=== PATIENT | male | born 1975 | race Asian ===

== ENCOUNTER 2016-07-07 21:50 | Inpatient (IN) | payer MEDICARE, OTHER ==
[~2016-07-07] VITALS: Ht 177.8 cm; Wt 74.0 kg
[~2016-07-07 21:50] MED LIST: ALLO100T PO; AMLO5TAB4 PO; BICS PO; CHOL50009 PO; CNC30T PO; COLC0.6T6 PO; DOCU-144 PO; EPOE20006 SC; FOSR500 PO; FURO40TA PO; METO-448 PO; MYCO250C3 PO; PRED2.5T3 PO; SEVE800T7 PO; TRAM-40 PO; TRAZ50TA18 PO
[2016-07-07] MEDS ORDERED: PIPER-TAZO 3.375 GM IV (PMX) 100 ML IVPB STA (22:38)
[2016-07-07] MEDS ORDERED: VANCOMYCIN 1 GM (PMX) 250 ML IVPB STA (22:38)
[2016-07-07] MEDS ORDERED: ACETAMINOPHEN 325 MG TAB PO STA (22:38)
[2016-07-07] MEDS ORDERED: SOD CHLORIDE 0.9% 500 ML IV ONE (23:00)
[2016-07-07] MEDS ORDERED: LISI10TA2 PO (23:01)
[2016-07-07] MEDS ORDERED: ALLO100T PO (23:02)
[2016-07-07] MEDS ORDERED: METO-429 PO (23:03)
[2016-07-07] MEDS ORDERED: MECL-77 PO (23:03)
[2016-07-07] MEDS ORDERED: CALC667C PO (23:04)
[2016-07-07] MEDS ORDERED: PRED20TA PO (23:04)
[2016-07-07] MEDS ORDERED: ONDA4TAB95 PO (23:06)
[2016-07-07] MEDS ORDERED: CALC600T11 PO (23:06)
[2016-07-07] MEDS ORDERED: ASPI-664 PO (23:07)
[2016-07-07] MEDS ORDERED: PANT20TA3 PO (23:07)
[2016-07-07] MEDS ORDERED: TIZA4TAB PO (23:08)
[2016-07-07] MEDS ORDERED: TRAZ50TA18 PO (23:10)
[2016-07-07] MEDS ORDERED: EPO10ESRD SC (23:11)
[2016-07-07] MEDS ORDERED: HYDR-906 PO (23:12)
[2016-07-07] MEDS ORDERED: CYCL5TAB PO (23:13)
--- NOTE | 2016-07-07 23:17 | RADRPT ---
PROCEDURE: XR Chest. CLINICAL INDICATION: Possible sepsis. TECHNIQUE: AP view of the chest was obtained. COMPARISON: 04/21/2014 FINDINGS: The cardiomediastinal silhouette is within normal limits. There is elevation of the right hemidiaphr agm with interval development of air space disease in the right lower lobe overlying the hemidiaphra gm. No signs of pleural fluid or pneumothorax are seen. The osseous structures and soft tissues are unremarkable. IMPRESSION: 1. Redemonstration of elevation of the right hemidiaphragm with interval development of infiltrates involving the right lower lobe, concerning for possible pneumonia. RPTAT: HGAS .Benny Grimm MD, MD Date Time Electronically viewed and signed by .Benny Grimm MD, on 07/07/2016 23:17 .S/
[2016-07-07 23:23] LABS: INR 1.01; PROTIME 13.3 Sec (12.2-14.2)
[2016-07-07 23:24] LABS: ALBUMIN 4.3 g/dl (3.3-4.9); PARTIAL THROMBOPLASTIN TIME 34.8 Sec (25.0-35.0)
[2016-07-07 23:25] LABS: POTASSIUM 3.9 mmol/L (3.5-5.1)
[2016-07-07 23:27] LABS: BILIRUBIN,INDIRECT 0.3 mg/dl (0-1.1); BILIRUBIN,TOTAL 0.3 mg/dl (0.2-1.3)
[2016-07-07 23:28] LABS: ALBUMIN/GLOBULIN RATIO 0.86; CALCIUM 7.8 mg/dl (8.4-10.2); TOTAL PROTEIN 9.3 g/dl (6.1-8.1)
[2016-07-07 23:30] LABS: HEMATOCRIT 32.4 % (42.0-52.0); HEMOGLOBIN 9.6 g/dl (14.0-18.0); MEAN CORPUSCULAR HGB CONC 29.7 g/dl (32.0-37.0); MEAN CORPUSCULAR VOLUME 57.3 fl (82.0-101.0); RED BLOOD COUNT 5.65 10^6/ul (4.70-6.10); RED CELL DISTRIBUTION WIDTH 24.8 % (11.5-14.5); UNCORRECTED WBC 13.7 10^3/ul (4.8-10.8); WHITE BLOOD COUNT 13.7 10^3/ul (4.8-10.8)
[2016-07-07 23:34] LABS: CONDITION 1; LH ANALYZER COMMENTS 1; PLATELET COUNT 102 10^3/UL (140-440); SUSPECT 1
[2016-07-07 23:38] LABS: CREATININE 20.14 mg/dl (0.61-1.24); TROPONIN-I 0.044 ng/ml (0.00-0.12)
[2016-07-08 00:20] LABS: LYMPHOCYTES # 3.3 10^3/ul (0.8-2.9); MONOCYTE # 1.1 10^3/ul (0.3-0.9); NEUTROPHIL # 8.8 10^3/ul (1.6-7.5)
[2016-07-08 00:21] LABS: OVALOCYTES 1+; TEAR DROP CELLS 1+
--- NOTE | 2016-07-08 00:27 | ERA ---
ER Documentation Chief Complaint Date/Time DATE: 07/08/16 TIME: 00:25 Chief Complaint FEVER SINCE YESTERDAY, LOW BP, WEAKNESS AND DIZINESS HPI This is a 41-year-old male has fever since yesterday with low blood pressure. Patient is a peritoneal dialysis patient. Denies any nausea vomiting. He denies any other current complaints. Fevers been on and off. No other current issues. ROS All systems reviewed and are negative except as per history of present illness. Medications Home Meds Reported Medications Cyclobenzaprine Hcl* (Cyclobenzaprine Hcl*) 5 Mg Tablet, 5 MG PO Q8H, #60 TAB 07/07/16 Hydrocodone/Acetaminophen ([place] 5-325 Tablet) 1 Each Tablet, 1 EACH PO Q6, TAB 07/07/16 Epoetin Gunner (Epogen) 10,000 Units/Ml Soln, 40010 UNITS SC Q7DAYS, VIAL 07/07/16 Trazodone Hcl* (Desyrel*) 50 Mg Tab, 50 MG PO QHS, #30 TAB 07/07/16 Tizanidine Hcl* (Tizanidine Hcl*) 4 Mg Tablet, 4 MG PO BID Y for SPASTICITY, TAB 07/07/16 Pantoprazole* (Pantoprazole*) 20 Mg Tablet.dr, 20 MG PO BID, TAB 07/07/16 Aspirin* (Aspirin* EC) 81 Mg Tablet.dr, 81 MG PO DAILY, TAB 07/07/16 Ondansetron Hcl* (Ondansetron Hcl*) 4 Mg Tablet, 4 MG PO Q8 Y for PRN, TAB 07/07/16 Calcium Carbonate* (Calcium Carbonate*) 600 MG Ca Tab, 3000 MG PO QID, TAB 07/07/16 Calcium Acetate* (Calcium Acetate*) 667 Mg Capsule, 2001 MG PO WITH MEALS, #90 CAP 07/07/16 Prednisone* (Prednisone*) 20 Mg Tab, 20 MG PO DAILY, TAB 07/07/16 Metoprolol Tartrate* (Lopressor*) 50 Mg Tab, 50 MG PO BID, #60 TAB 07/07/16 Meclizine Hcl* (Meclizine Hcl*) 25 Mg Tablet, 25 MG PO TID, TAB 07/07/16 Allopurinol* (Allopurinol*) 100 Mg Tablet, 100 MG PO DAILY, TAB 07/07/16 Lisinopril* (Lisinopril*) 10 Mg Tablet, 10 MG PO DAILY, #30 TAB 07/07/16 Sevelamer Carbonate* (Renvela*) 800 Mg Tablet, 2400 MG PO TID, TAB 04/23/14 Cholecalciferol* (Vitamin D*) 5,000 Unit Tablet, 53681 UNIT PO once a week, TAB 04/21/14 Trazodone Hcl* (Trazodone Hcl*) 50 Mg Tablet, 50 MG PO HS, TAB 04/21/14 Tramadol Hcl* (Ultram*) 50 Mg Tablet, 50 MG PO Q8 Y for PAIN, TAB 04/21/14 Amlodipine Besylate* (Norvasc*) 5 Mg Tablet, 5 MG PO BID, TAB 04/21/14 Discontinued Reported Medications Citric Acid/Sodium Citrate* (Bicitra* (PEDIATRIC)) 1 Meq/Ml Soln, 30 ML PO BID, POSYG 04/23/14 Docusate Sodium* (Colace*) 100 Mg Capsule, 100 MG PO BID, CAP 04/21/14 Epoetin Gunner* (Epogen*) 20,000 U/Ml Vial, 37339 UNIT SC once a week, VIAL 04/21/14 Lanthanum Carbonate* (Fosrenol*) 500 Mg Tab.chew, 2 GM PO TID, TAB.CHEW WITH MEALS 04/21/14 Cinacalcet* (Sensipar*) 30 Mg Tab, 30 MG PO DAILY, TAB 04/21/14 Furosemide* (Lasix*) 40 Mg Tablet, 40 MG PO BID, TAB 04/21/14 Metoprolol Tartrate* (Lopressor*) 25 Mg Tab, 25 MG PO DAILY, TAB 04/21/14 Allopurinol* (Allopurinol*) 100 Mg Tablet, 100 MG PO DAILY, TAB 04/21/14 Colchicine* (Colcrys*) 0.6 Mg Tablet, 0.6 MG PO Q12 Y for PAIN, TAB 04/21/14 Prednisone* (Prednisone*) 2.5 Mg Tablet, 2.5 MG PO DAILY, TAB 04/21/14 Mycophenolate Mofetil* (Cellcept*) 250 Mg Capsule, 250 MG PO DAILY, CAP 04/21/14 Allergies Allergies: Coded Allergies: No Known Drug Allergies (Verified Allergy, Mild, 07/07/16) PMhx/Soc History of Surgery: Yes (kidney transplant,partial thyroidectomy) Anesthesia Reaction: No Hx Neurological Disorder: No Hx Respiratory Disorders: No Hx Cardiac Disorders: Yes (chronic hypotension) Hx Psychiatric Problems: No Hx Miscellaneous Medical Probl: Yes (kidney failure,on peritoneal dialysis) Hx Alcohol Use: No Hx Substance Use: Yes (HX drug use) Hx Tobacco Use: Yes Smoking Status: Former smoker Physical Exam Vitals Vital Signs Date Time Temp Pulse Resp B/P Pulse Ox O2 Delivery O2 Flow Rate FiO2 07/08/16 00:18 102.7 07/08/16 00:01 120 25 100/66 99 Room Air 07/07/16 22:45 102 23 102/78 96 Room Air 07/07/16 21:54 101.2 118 20 88/58 100 Physical Exam Const: [] Head: Atraumatic Eyes: Normal Conjunctiva ENT: Normal External Ears, Nose and Mouth. Neck: Full range of motion..~ No meningismus. Resp: Clear to auscultation bilaterally Cardio: Regular rate and rhythm, no murmurs Abd: Soft, non tender, non distended. Normal bowel sounds Skin: No petechiae or rashes Back: No midline or flank tenderness Ext: No cyanosis, or edema Neur: Awake and alert Psych: Normal Mood and Affect Result Diagram: 07/07/16 2303 07/07/16 2303 Results 24 hrs Laboratory Tests Test 07/07/16 23:03 Activated Partial Thromboplast Time 34.8Sec Alanine Aminotransferase (ALT/SGPT) 31IU/L Albumin 4.3g/dl Albumin/Globulin Ratio 0.86 Alkaline Phosphatase 138IU/L Anion Gap 27 Aspartate Amino Transf (AST/SGOT) 32IU/L Band Neutrophils % 4.0% Blood Morphology Comment Blood Urea Nitrogen 86mg/dl Calcium Level 7.8mg/dl Carbon Dioxide Level 23mmol/L Chloride Level 88mmol/L Creatinine 20.14mg/dl Direct Bilirubin 0.00mg/dl Globulin 5.00g/dl Glucose Level 108mg/dl Hematocrit 32.4% Hemoglobin 9.6g/dl INR International Normalized Ratio 1.01 Indirect Bilirubin 0.3mg/dl Lactic Acid Level 1.4mmol/L Large Platelets FEW Lymphocytes # 3.310^3/ul Lymphocytes % 24.0% Macrocytosis 1+ Mean Corpuscular Hemoglobin 17.0pg Mean Corpuscular Hemoglobin Concent 29.7g/dl Mean Corpuscular Volume 57.3fl Mean Platelet Volume 10.0fl Monocytes # 1.110^3/ul Monocytes % 8.0% Neutrophils # 8.810^3/ul Neutrophils % 64.0% Ovalocytes 1+ Platelet Count 09403^3/UL Potassium Level 3.9mmol/L Prothrombin Time 13.3Sec Prothrombin Time Ratio 1.0 Red Blood Count 5.6510^6/ul Red Cell Distribution Width 24.8% Sodium Level 134mmol/L Tear Drop Cells 1+ Total Bilirubin 0.3mg/dl Total Protein 9.3g/dl Troponin I 0.044ng/ml White Blood Count 13.710^3/ul Current Medications Medications (Trade) Dose Ordered Sig/Linnette Route PRN Reason Start Time Stop Time Status Last Admin Dose Admin Acetaminophen 650 mg 650 mg ONCE STAT PO 07/07/16 22:38 07/07/16 22:40 DC 07/07/16 23:32 Vancomycin HCl 250 ml @ 125 mls/hr ONCE STAT IVPB 07/07/16 22:38 07/08/16 00:37 07/08/16 00:15 Piperacillin Sod/ Tazobactam Sod 100 ml @ 200 mls/hr ONCE STAT IVPB 07/07/16 22:38 07/07/16 23:07 DC 07/07/16 23:34 Sodium Chloride (NS) 500 ml @ 500 mls/hr Q1H ONCE IV 07/07/16 23:00 07/07/16 23:59 DC 07/07/16 23:33 Procedures/MDM EKG: Rate/Rhythm: Sinus tachycardia QRS, ST, T-waves: [No changes consistent w/ acute ischemia] Impression: [Sinus tachycardia Chest X-ray 1V Interpreted by me: Soft Tissue: No acute abnormalities Bones: No acute abnormalities Mediastinum/Cardiac Silhouette/Lungs: Right lower lobe pneumonia Medical decision making: [id number] gentleman who comes in with fever and has evidence of right lower lobe pneumonia. Given his many comorbidities, patient will be admitted to the hospitalist. He has been started on Zosyn and vancomycin. Patient is also at risk for spontaneous pectoral peritonitis, however he has a negative abdominal exam. Patient will be admitted to the medical surgical floor Departure Diagnosis: Primary Impression: Pneumonia Qualified Code: J18.9 - Pneumonia of right lower lobe due to infectious organism Additional Impression: Fever Qualified Code: R50.9 - Fever, unspecified fever cause Condition: Serious STEPHANIE THURSTON Jul 08, 2016 00:27
[2016-07-08] MEDS ORDERED: ONDANSETRON 4 MG INJ IV STA (00:51)
[2016-07-08] MEDS ORDERED: morphine 4 MG/ML VIAL IV STA (00:51)
[2016-07-08 02:25] VITALS: TEMP 101.2
[2016-07-08 03:40] VITALS: Ht 177.8 cm; Wt 74.0 kg
[2016-07-08] MEDS ORDERED: EPOETIN 10000 UNITS/1 ML INJ (ESRD) SC ONE (05:30)
[2016-07-08] MEDS ORDERED: MIDODRINE 5 MG TAB PO PRN (05:30)
[2016-07-08] MEDS ORDERED: CYCLOBENZAPRINE 10 MG TAB PO PRN (05:30)
[2016-07-08] MEDS ORDERED: traMADol 50 MG TAB GTB PRN (05:30)
[2016-07-08] MEDS ORDERED: HYDROCODONE/APAP (5/325) TAB GTB PRN (05:30)
[2016-07-08] MEDS ORDERED: EPOETIN 10000 UNITS/1 ML INJ (ESRD) SC SCH (06:00)
[2016-07-08] MEDS ORDERED: morphine 2 MG INJ IV PRN (06:00)
[2016-07-08] MEDS ORDERED: PANTOPRAZOLE (EC) 40 MG TAB PO SCH (06:00)
[2016-07-08] MEDS: CEFTRIAXONE 1 GM/50 ML (PMX) 50 ML IVPB SCH (06:28)
[2016-07-08] MEDS: PANTOPRAZOLE SODIUM 20 MG TABEC PO SCH ×2 (06:28→17:39)
[2016-07-08] MEDS: morphine 4 MG/ML VIAL IV PRN ×2 (06:29→12:04)
[2016-07-08] MEDS ORDERED: SEVELAMER 800 MG TAB PO SCH ×2 (07:35→17:35)
[2016-07-08 08:00] VITALS: BP 117/76; PULSE 113; RESP 18
[2016-07-08] MEDS: AZITHROMYCIN 500MG/NS (PMX) 250 ML IVPB SCH (08:25)
[2016-07-08] MEDS: CALCIUM ACETATE 667 MG CAP PO SCH ×3 (08:25→17:39)
[2016-07-08] MEDS: ALLOPURINOL 100 MG TAB PO SCH (08:26)
[2016-07-08] MEDS: CALCITRIOL 0.25 MCG CAP PO SCH (08:26)
[2016-07-08] MEDS: ASPIRIN 81 MG TAB PO SCH (08:26)
[2016-07-08 08:32] LABS: HEMATOCRIT 27.7 % (42.0-52.0); HEMOGLOBIN 8.3 g/dl (14.0-18.0); MEAN CORPUSCULAR HEMOGLOBIN 17.2 pg (29.0-33.0); MEAN CORPUSCULAR HGB CONC 29.9 g/dl (32.0-37.0); MEAN CORPUSCULAR VOLUME 57.5 fl (82.0-101.0); MEAN PLATELET VOLUME 10.7 fl (7.4-10.4); PLATELET COUNT 80 10^3/UL (140-440); RED BLOOD COUNT 4.81 10^6/ul (4.70-6.10); RED CELL DISTRIBUTION WIDTH 24.9 % (11.5-14.5); UNCORRECTED WBC 11.6 10^3/ul (4.8-10.8); WHITE BLOOD COUNT 11.6 10^3/ul (4.8-10.8)
[2016-07-08 08:35] LABS: POTASSIUM 3.8 mmol/L (3.5-5.1)
[2016-07-08 08:36] LABS: IRON 83 ug/dl (35-150)
[2016-07-08] MEDS: ACETAMINOPHEN 325 MG TAB PO PRN ×2 (08:37→16:32)
[2016-07-08 08:39] LABS: CALCIUM 7.1 mg/dl (8.4-10.2)
[2016-07-08] MEDS: METOPROLOL 50 MG TAB PO SCH ×2 (08:43→21:00)
[2016-07-08] MEDS: AMLODIPINE 5 MG TAB PO SCH ×2 (08:43→21:00)
[2016-07-08] MEDS: LISINOPRIL 10 MG TAB PO SCH (08:44)
[2016-07-08 08:45] LABS: CONDITION 1; LH ANALYZER COMMENTS 1; SUSPECT 1
[2016-07-08 08:46] LABS: CREATININE 19.44 mg/dl (0.61-1.24); TOTAL IRON BINDING CAPACITY 158 ug/dl (241-421)
[2016-07-08] MEDS: CALCIUM CARBONATE 1.25 GM TAB GTB SCH ×4 (09:00→22:03)
--- NOTE | 2016-07-08 10:09 | HP ---
DATE OF ADMISSION: 07/08/2016 TIME: 7 a.m. CHIEF COMPLAINT: Dizziness, weakness, and fevers. HISTORY OF PRESENT ILLNESS: The patient is a 41-year-old male with a history of kidney failure stat us post failed kidney transplant, now on peritoneal dialysis. The patient presents with fevers with temperatures as high as 104, low blood pressure, dizziness, and weakness. The patient denies any n ausea, vomiting, or any GI symptoms. In the ED, the patient was noted to have leukocytosis as well as fevers and a chest x-ray that was suggestive of pneumonia. He has no other complaints at this ti al except for the patient's swelling on the right side. Appears to be stable. He did state that he had a blister on his right lip that seems to be healing. There is also a blister in his nose that also appears to be healing. PAST MEDICAL HISTORY: As per HPI. HOME MEDICATIONS: 1. Allopurinol. 2. Norvasc. 3. Aspirin. 4. Calcium. 5. Vitamin D. 6. Flexeril. 7. Neupogen. 8. [place]. 9. Lisinopril. 10. Meclizine. 11. Metoprolol. 12. Zofran. 13. Protonix. 14. Prednisone. 15. Merogel. 16. Zanaflex. 17. Tramadol. 18. Trazodone. ALLERGIES: NO KNOWN DRUG ALLERGIES. FAMILY HISTORY: Noncontributory. SOCIAL HISTORY: No reports of any alcohol or drug abuse or smoking abuse. REVIEW OF SYSTEMS: A 12-point review of systems negative except for that as stated in HPI. PHYSICAL EXAMINATION: VITAL SIGNS: T-current is 101.2, T-max 102.7, pulse 115, respiratory rate 15, BP is 91/66, saturati on 99% on room air. GENERAL: No acute distress, alert and oriented. HEENT: Normocephalic, atraumatic. There is some old blister noted on the right lip and right nose with some mild swelling on the right lip. CHEST: Clear to auscultation. CARDIOVASCULAR: Regular rate and rhythm. ABDOMEN: Nondistended, nontender, soft. EXTREMITIES: No clubbing, cyanosis, or edema. LABORATORIES: White count is 13.7, hemoglobin is 9.6, platelets are 102. Chemistry within normal l imits except for a sodium 134, chloride 88, anion gap is 27, BUN is 86, creatinine is 20.14, calcium is 7.8. INR is 1.01. DIAGNOSTICS: Chest x-ray shows redemonstration of elevation of the right hemidiaphragm with develop ment of infiltrates involving the right lower lobe concerning for possible pneumonia. ASSESSMENT AND PLAN: 1. Sepsis secondary to pneumonia, treated with Rocephin and azithromycin. 2. End-stage renal disease status post failed kidney transplant, now on peritoneal dialysis. Agustin nue PD. 3. History of gout. Continue home allopurinol. 4. Hypertension. Continue home Norvasc. 5. Prophylaxis. Ambulation. Dictated By: MERCEDES CARDENAS/HORTENSIA Conf#: [id number] DID#: [id number]
[2016-07-08 10:46] LABS: EOSINOPHILS # 0.1 10^3/ul (0.0-0.5); LYMPHOCYTES # 1.9 10^3/ul (0.8-2.9); MONOCYTE # 0.2 10^3/ul (0.3-0.9); NEUTROPHIL # 8.6 10^3/ul (1.6-7.5)
[2016-07-08 10:47] LABS: ANISOCYTOSIS 3+; HYPOCHROMASIA 3+; MICROCYTOSIS 3+; PLATELET ESTIMATE PLT APPEAR DECREASED
[2016-07-08] MEDS: SEVELAMER 800 MG TAB PO SCH ×2 (12:06→17:39)
[2016-07-08 18:40] VITALS: BP 95/77
[2016-07-08 20:50] VITALS: BP 101/62; RESP 20
[2016-07-08] MEDS ORDERED: DEXTROSE 5% IVPB SCH (21:00)
[2016-07-08] MEDS ORDERED: GANCICLOVIR IVPB SCH (21:00)
[2016-07-08 21:17] VITALS: BP 101/62; RESP 20
[2016-07-08] MEDS: traZODone 50 MG TAB PO SCH (22:02)
[2016-07-08 23:55] VITALS: BP 120/78; PULSE 115; RESP 18
[2016-07-09 05:34] LABS: ALBUMIN 3.3 g/dl (3.3-4.9)
[2016-07-09 05:35] LABS: POTASSIUM 3.8 mmol/L (3.5-5.1)
[2016-07-09 05:37] LABS: ALBUMIN/GLOBULIN RATIO 0.89
[2016-07-09] MEDS: CEFTRIAXONE 1 GM/50 ML (PMX) 50 ML IVPB SCH (05:37)
[2016-07-09] MEDS: PANTOPRAZOLE SODIUM 20 MG TABEC PO SCH ×2 (05:37→18:00)
[2016-07-09 05:38] LABS: CALCIUM 7.4 mg/dl (8.4-10.2)
[2016-07-09 05:40] LABS: HEMATOCRIT 23.6 % (42.0-52.0); HEMOGLOBIN 7.1 g/dl (14.0-18.0); MEAN CORPUSCULAR HEMOGLOBIN 17.3 pg (29.0-33.0); MEAN CORPUSCULAR VOLUME 57.6 fl (82.0-101.0); PLATELET COUNT 69 10^3/UL (140-440); RED CELL DISTRIBUTION WIDTH 24.5 % (11.5-14.5); UNCORRECTED WBC 9.5 10^3/ul (4.8-10.8); WHITE BLOOD COUNT 9.5 10^3/ul (4.8-10.8)
[2016-07-09 06:07] LABS: CONDITION 1; SUSPECT 1
[2016-07-09 06:08] LABS: LH ANALYZER COMMENTS 1
[2016-07-09] MEDS: AZITHROMYCIN 500MG/NS (PMX) 250 ML IVPB SCH (06:12)
[2016-07-09 06:28] LABS: CREATININE 20.77 mg/dl (0.61-1.24)
[2016-07-09] MEDS: ONDANSETRON 4 MG TAB PO PRN (06:39)
[2016-07-09 07:14] VITALS: BP 109/59; RESP 18
[2016-07-09 07:49] VITALS: BP 103/66; RESP 17
[2016-07-09] MEDS: LISINOPRIL 10 MG TAB PO SCH (09:00)
[2016-07-09] MEDS: METOPROLOL 50 MG TAB PO SCH ×2 (09:00→21:00)
[2016-07-09] MEDS: AMLODIPINE 5 MG TAB PO SCH ×2 (09:00→21:00)
[2016-07-09] MEDS: MECLIZINE 25 MG TAB PO PRN (09:20)
[2016-07-09] MEDS: CALCITRIOL 0.25 MCG CAP PO SCH ×2 (09:21→21:17)
[2016-07-09] MEDS: SEVELAMER 800 MG TAB PO SCH ×3 (09:22→17:58)
[2016-07-09] MEDS: ASPIRIN 81 MG TAB PO SCH (09:22)
[2016-07-09] MEDS: CALCIUM CARBONATE 1.25 GM TAB GTB SCH ×4 (09:22→21:18)
[2016-07-09] MEDS: ALLOPURINOL 100 MG TAB PO SCH (09:23)
[2016-07-09] MEDS: CALCIUM ACETATE 667 MG CAP PO SCH ×3 (09:25→17:58)
[2016-07-09 10:09] LABS: ANISOCYTOSIS 2+; EOSINOPHILS # 0.3 10^3/ul (0.0-0.5); HYPOCHROMASIA 2+; LYMPHOCYTES # 1.8 10^3/ul (0.8-2.9); MICROCYTOSIS 2+; NEUTROPHIL # 6.3 10^3/ul (1.6-7.5)
[2016-07-09 10:10] LABS: PLATELET ESTIMATE PLT APPEAR DECREASED
--- NOTE | 2016-07-09 11:46 | RADRPT ---
PROCEDURE: CT Brain without contrast. CLINICAL INDICATION: Headache TECHNIQUE: A CT of the brain was performed on a multidetector CT scanner utilizing axial sections from the skull base through the vertex without contrast. Images were reviewed on a high-resolution [employer] workstation. Exam CTDI = 45.01 mGy and the DLP = 720.23 mGy-cm. One or more of the following dose reduction techniques were used: Automated exposure control Adjustment of the mA and/or kV according to patient size. Use of iterative reconstruction technique. COMPARISON: None available FINDINGS: There is no evidence of intracranial hemorrhage, mass effect or midline shift. No abnormal intra-ax ial or extra-axial fluid collections are seen. The density of the brain is normal and the june/whit e matter differentiation is well preserved. The osseous structures are unremarkable. Mild mucosal thickening is seen in the right ethmoid and sphenoid sinuses. IMPRESSION: 1. No intracranial hemorrhage, mass effect or midline shift. RPTAT: BB .Jimena Rodríguez MD, MD Date Time Electronically viewed and signed by .Jimena Rodríguez MD, on 07/09/2016 11:46 .O/
[2016-07-09] MEDS ORDERED: EPOETIN 4000 UNITS/1 ML INJ (ESRD) SC SCH (12:00)
[2016-07-09] MEDS: morphine 4 MG/ML VIAL IV PRN ×3 (12:19→22:12)
--- NOTE | 2016-07-09 12:47 | CONS ---
Date/Time of Note Date/Time of Note DATE: 07/09/16 TIME: 12:39 Assessment/Plan Assessment/Plan Problems: (1) Hungry bone syndrome Status: Chronic Comment: The patient has had this for 6 months. This is somewhat unusual length of time for this but then again his hyperparathyroidism was a somewhat unusual presentation probably chronic. The is an extremely excellent historian and as such I find her quite believable. The question is raised my mind about whether or not there is a partial parathyroid hormone deficiency also in the mix. The primary care team is already ordered a parathyroid hormone level to match up against the serum calciums we have. I am going to get an ionized calcium continue the oral calcium dosages as he had been on his outpatient but increase the calcitriol to twice daily to try and normalize this. 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 He has a long history of hypertension which led to the onset of renal insufficiency. 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 In roughly 2011 the donor kidney failed and he was placed on continuous ambulatory peritoneal dialysis. In the recent past he developed symptoms and issues with secondary or tertiary hyperparathyroidism with PTH levels in the 2000 range and diffuse subcutaneous calcifications. He was on Sensipar but despite this was having issues. He underwent surgical parathyroidectomy for 3 glands at [facility]. This was performed in January 2016. Postoperatively he was reported to have had hungry bone syndrome and the Sensipar was discontinued as his PTH level dropped to 2. His spouse who is a reliable historian reports that his PTH levels umm but he needed to be on extremely high doses of calcium and calcitriol which been slowly being tapered. He is now on 3000 mg of calcium 4 times daily in addition to his phosphorus binding agents and calcitriol 0.25 mg once a day. He is not on Sensipar he is not on immunosuppressive. 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 he is and lives with his who is a nurse Exam/Review of Systems Vital Signs Vitals Vital Signs Date Time Temp Pulse Resp B/P Pulse Ox O2 Delivery O2 Flow Rate FiO2 07/09/16 07:49 98.4 101 17 103/66 96 07/08/16 23:55 Room Air Intake and Output 07/08/16 07/08/16 07/09/16 15:00 23:00 07:00 Intake Total 300 ml 500 ml Balance 300 ml 500 ml Exam Constitutional: alert, oriented Respiratory: clear to auscultation, normal air movement Cardiovascular: nl pulses, regular rate and rhythm Results Result Diagram: 07/09/16 0425 07/09/16 0425 Results 24 hrs Laboratory Tests Test 07/09/16 04:25 Alanine Aminotransferase (ALT/SGPT) 33 Albumin 3.3 # Albumin/Globulin Ratio 0.89 Alkaline Phosphatase 87 Anion Gap 24 H Anisocytosis 2+ Aspartate Amino Transf (AST/SGOT) 28 Band Neutrophils % 2.0 Blood Morphology Comment Blood Urea Nitrogen 93 H Calcium Level 7.4 L Carbon Dioxide Level 22 Chloride Level 88 L Creatinine 20.77 H Differential Comment MANUAL DIFF Direct Bilirubin 0.00 Eosinophils # 0.3 Eosinophils % 3.0 Ferritin 2870.0 H Giant Platelets RARE Globulin 3.70 H Glucose Level 101 Hematocrit 23.6 L Hemoglobin 7.1 L Hypochromasia 2+ Indirect Bilirubin 0.0 Large Platelets OCCASIONAL Lymphocytes # 1.8 Lymphocytes % 19.0 Mean Corpuscular Hemoglobin 17.3 L Mean Corpuscular Hemoglobin Concent 30.0 L Mean Corpuscular Volume 57.6 L Mean Platelet Volume 11.0 H Microcytosis 2+ Monocytes # 1.0 H Monocytes % 10.0 Neutrophils # 6.3 Neutrophils % 66.0 Parathyroid Hormone (Intact) Platelet Count 69 L Platelet Estimate PLT APPEAR DECREASED Potassium Level 3.8 Red Blood Count 4.10 L Red Cell Distribution Width 24.5 H Sodium Level 130 L Total Bilirubin 0.0 L Total Protein 7.0 # White Blood Count 9.5 Medications Medications Current Medications Calcium Carbonate (Oyster Shell Calcium) 3 gm QID GTB Last administered on 12:18; Admin Dose 3 GM; Start 07/08/16 at 09:00 Allopurinol (Zyloprim) 100 mg DAILY PO Last administered on 07/09/16 09:23; Admin Dose 100 MG; Start 07/08/16 at 09:00 Lisinopril (Zestril) 10 mg DAILY PO ; Start 07/08/16 at 09:00 Metoprolol Tartrate (Lopressor) 50 mg BID PO ; Start 07/08/16 at 09:00 Amlodipine Besylate (Norvasc) 5 mg BID PO ; Start 07/08/16 at 09:00 Aspirin (Aspirin) 81 mg DAILY PO Last administered on 07/09/16 09:22; Admin Dose 81 MG; Start 07/08/16 at 09:00 Pantoprazole Sodium (Protonix) 20 mg BID@06,18 PO Last administered on 05:37; Admin Dose 20 MG; Start 07/08/16 at 06:00 Trazodone HCl (Desyrel) 50 mg HS PO Last administered on 07/08/16 22:02; Admin Dose 50 MG; Start 07/08/16 at 21:00 Midodrine (Proamatine) 5 mg BID@17 PRN PO SBP less than 100 Last administered on 07/08/16 19:05; Admin Dose 5 MG; Start 07/08/16 at 05:30 Tramadol HCl (Ultram) 50 mg Q8 PRN GTB pain; Start 07/08/16 at 05:30 Cyclobenzaprine HCl (Flexeril) 5 mg Q8 PRN PO muscle spasm; Start 07/08/16 at 05 :30 Acetaminophen/ Hydrocodone Bitart ([place] (5/325)) 1 tab Q6 PRN GTB pain Last administered on 07/09/16 09:20; Admin Dose 1 TAB; Start 07/08/16 at 05:30 Ondansetron HCl (Zofran Tab) 4 mg Q4 PRN PO NAUSEA AND/OR VOMITING Last administered on 07/09/16 06:39; Admin Dose 4 MG; Start 07/08/16 at 05:30 Morphine Sulfate (morphine) 4 mg Q4H PRN IV pain Last administered on 07/09/16 12:19; Admin Dose 4 MG; Start 07/08/16 at 05:30 Ergocalciferol 72855 unit 50,000 unit [place]@09 PO ; Start 07/13/16 at 09:00 Azithromycin 250 ml @ 250 mls/hr Q24H IVPB Last administered on 07/09/16 06:12 ; Admin Dose 250 MLS/HR; Start 07/08/16 at 06:00 Ceftriaxone Sodium (Rocephin) 50 ml @ 100 mls/hr Q24H IVPB Last administered on 07/09/16 05:37; Admin Dose 100 MLS/HR; Start 07/08/16 at 06:00 Morphine Sulfate (morphine) 2 mg Q3H PRN IV SEVERE PAIN LEVEL 7-10 Last administered on 07/08/16 22:03; Admin Dose 2 MG; Start 07/08/16 at 06:00 Epoetin Gunner (Epogen (Esrd)) 10,000 units [place]@17 SC ; Start 07/13/16 at 17:00 Acetaminophen 650 mg 650 mg Q4H PRN PO PAIN AND OR ELEVATED TEMP Last administered on 07/08/16 16:32; Admin Dose 650 MG; Start 07/08/16 at 08:30 Ganciclovir/ Dextrose (Cytovene/D5W) 100 ml @ 100 mls/hr TuThSa@21 IVPB Last administered on 07/09/16 00:27; Admin Dose 100 MLS/HR; Start 07/08/16 at 21:00 Meclizine HCl (Antivert) 25 mg Q8H PRN PO dizziness Last administered on 09:20; Admin Dose 25 MG; Start 07/08/16 at 22:00 Sodium Chloride (Nacl) 2 gm BID PO ; Start 07/09/16 at 12:00 Calcitriol (Rocaltrol) 0.25 mcg BID PO ; Start 07/09/16 at 21:00 JEISON CLARKE MD Jul 09, 2016 12:47
[2016-07-09] MEDS ORDERED: EPOETIN 10000 UNITS/1 ML INJ (ESRD) SC ONE (14:00)
--- NOTE | 2016-07-09 14:01 | CONS ---
DATE OF ADMISSION: 07/08/2016 DATE OF CONSULTATION: 07/09/2016 TYPE OF CONSULTATION: Nephrology. REASON FOR CONSULTATION: End-stage renal disease. REQUESTING PHYSICIAN: Dr. Herman. HISTORY OF PRESENT ILLNESS: This is a 41-year-old male with a past medical history of end-stage ja al disease secondary to hypertension, status post living donor transplant in 2004 with allograft farhan lure in 2012. The patient has since been on peritoneal dialysis. The patient also has a history of hungry bone syndrome following parathyroidectomy, a history of mineral bone disorder, history of GE RD who presents to [facility] for complaints of dizziness, weakness, and fever. T he patient upon arrival to the emergency room was noted to be febrile with temperatures of 102.7. T he patient was noted to be hypertensive. Chest x-ray was obtained which showed a right hemidiaphrag m and interval development of infiltrate involving right lower lobe concerning for possible pneumoni a. The patient was started on IV antibiotics and admitted to med/surg telemetry for further evaluat ion. 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 The patient has been on perito adriano dialysis, receiving 5 exchanges with a cycler at night, alternating between 1.5 and 2.5% dextro se solution with a midday exchange. The patient, however, does ultrafiltration about 1 liter daily. PAST MEDICAL HISTORY: As stated above, history of end-stage renal disease, history of hungry bone d isorder, history of anemia, history of gastroesophageal reflux disease. PAST SURGICAL HISTORY: History of cadaveric transplant 2004, history of PD catheter placement 2012, history of parathyroidectomy. ALLERGIES: NO KNOWN DRUG ALLERGIES. FAMILY HISTORY: Noncontributory. SOCIAL HISTORY: Does not drink, smoke or do drugs. MEDICATIONS: Patient medications have been reviewed. REVIEW OF SYSTEMS: A 14-point review of systems was conducted. Pertinent positives in HPI, otherwi se negative. PHYSICAL EXAMINATION: VITAL SIGNS: Blood pressure is 103/66, respirations 17, pulse 101, temperature 98.4. HEENT: Head is normocephalic. NECK: Supple. HEART: Regular rate. LUNGS: Show diminished breath sounds at the base. ABDOMEN: Soft, nontender to palpation. Positive PD catheter, clean, dry, intact. EXTREMITIES: Negative for clubbing, cyanosis, no edema. DERMATOLOGIC: No rashes. MUSCULOSKELETAL: No joint effusions. NEUROLOGIC: No focal deficits. LABORATORY DATA: Shows sodium 130, potassium 3.8, chloride 88, BUN 93, creatinine is 20.77. Ferrit in level is 2000, iron saturations 53. White count 9.5, hemoglobin 10.1, hematocrit 23.6, platelet c ount 69. IMAGING STUDIES: CT scan of the brain shows no acute findings and chest x-ray shows elevated hemidi aphragm. ASSESSMENT AND PLAN: This is a 41-year-old male who presents with: 1. End-stage renal disease, currently on peritoneal dialysis. Plan is to continue current home reg imen. We will do a nighttime cycler with 5 exchanges 1.5 dextrose solution in order to minimize ultr afiltration in the setting of hypertension. We will also can do an additional midday exchange. We will monitor ultrafiltration closely, minimizing no more than 1 liter daily. 2. Mineral bone disorder with reported history of hungry bone syndrome secondary to recent parathyr oidectomy in January. The patient is currently on calcium carbonate, Calcitriol and ergocalciferol. A t this point, the patient's calcium levels appear to be near normal limits. We will continue to mon itor. An endocrinology consult was placed. We will follow up recommendations. 3. Anemia of chronic disease. The patient is usually receiving 30 to 60,000 units of Epogen weekly . We will give the patient a dose of Epogen today 20,000 units, monitor H and H levels closely. Ma y require transfusion if hemoglobin levels fall below 7 mg/dL. 4. Hyponatremia secondary to end-stage renal disease. Continue peritoneal dialysis. Limit free wa ter intake. 5. Sepsis secondary to pneumonia. The patient is currently on IV antibiotics. We will continue. Follow up cultures. We will also check a peritoneal fluid for cell count, cytology and culture. 6. History of gout. Continue allopurinol. 7. Hypertension, possibly due to underlying sepsis. We will monitor closely, minimize ultrafiltrat ion with peritoneal dialysis. 8. Hyperphosphatemia secondary to end-stage renal disease. We will continue the patient on phospha te binders. 9. History of hypertension. The patient is currently hypotensive as stated above. We will also constantine ce parameters on blood pressure medications. Thank you, Dr. Herman, for this interesting consult. It will be a pleasure to follow patient with you throughout the hospital course. Dictated By: YOAV FIELD/HORTENSIA Conf#: [id number] DID#: [id number]
[2016-07-09 14:30] LABS: T3 UPTAKE 41.9 % (23.5-40.5)
[2016-07-09 14:44] LABS: THYROID STIMULATING HORMONE 1.49 MIU/L (0.465-4.680)
[2016-07-09] MEDS: DOCUSATE SODIUM 100 MG CAP PO SCH ×2 (15:27→21:17)
[2016-07-09] MEDS: SODIUM CHLORIDE 1 GM TAB PO SCH (15:27)
[2016-07-09] MEDS ORDERED: VITAMIN A & D 5 GM OINT PACKET TOP ONE (15:34)
--- NOTE | 2016-07-09 16:28 | CONS ---
DATE OF ADMISSION: 07/08/2016 DATE OF CONSULTATION: 07/09/2016 TYPE OF CONSULTATION: Infectious Disease. REASON FOR CONSULTATION: Antibiotic management. HISTORY OF PRESENT ILLNESS: Osiel Cunha is a 41-year-old male with a history of kidney failure st atus post failed renal transplant who is admitted with dizziness, weakness, and fever. His problems include end-stage renal disease on peritoneal dialysis. The patient presents with fevers to 104 de grees, hypotension, dizziness, and weakness. He denies nausea or vomiting. He also has leukocytosi s and a chest x-ray suggestive of pneumonia. He also has some swelling on his right thigh. OPERATIONS: None. FAMILY HISTORY: Noncontributory. SOCIAL HISTORY: He does not smoke, drink, or abuse drugs. ALLERGIES: NONE TO PENICILLIN, SULFA, OR FOODS. MEDICATIONS: Per chart. REVIEW OF SYSTEMS: Noncontributory. PHYSICAL EXAMINATION: GENERAL: The patient is a chronically ill-appearing male who is awake, alert, responsive, in no acu te distress. VITAL SIGNS: Stable. T-max of 102.7. Currently he is afebrile at 99.6. SKIN: Without generalized rash. HEENT: Within normal limits. He has some blisters on the right lip and right nose with mild swelli ng of the right lip consistent with herpes labialis. NECK: Supple. LYMPH NODES: None palpable. CHEST: Decreased breath sounds at the bases. HEART: Without murmur or gallop. ABDOMEN: Soft, nontender, without organosplenomegaly or masses. EXTREMITIES: Without cyanosis, clubbing, or edema. RECTAL AND GENITAL: Deferred. NEUROLOGICAL: No focal neurological abnormality. ANCILLARY LABORATORY DATA: White count 13.7, H and H of 9.6 and 32.4, platelet count 102,000. His white count today is 9.5. His BUN and creatinine are 93 and 20.77. Ferritin level is 2870, markedl y elevated. A chest x-ray shows redemonstration of elevated right hemidiaphragm with interval devel opment of infiltrates involving the right lower lobe concerning for possible pneumonia. A CT scan o f the brain shows no intracranial hemorrhage, mass effect, or midline shift. MICROBIOLOGY: Blood cultures are negative. MRSA screen is negative. IMPRESSION AND PLAN: The patient is septic. He has probable pneumonitis. He is on Rocephin and az ithromycin. He has end-stage renal disease on peritoneal dialysis. He now has some lesions consist ent with herpes. We have to consider whether he is developing zoster or whether this is just herpes labialis. We will start him on an antiviral. I will dictate my findings to the hospitalist and to Dr. Snyder and Dr. Brower. The patient also has a history of gout on allopurinol. ADDENDUM: The patient had recent thyroidectomy and is on Calcitriol and ergocalciferol. Of note is the fact that the patient now is on ganciclovir which he was on on the and which was stopped. We will consider placing him on another antiviral. Dictated By: BIRD PORTILLO MD, JD/HORTENSIA Conf#: [id number] DID#: [id number]
--- NOTE | 2016-07-09 19:17 | PN ---
Date/Time of Note Date/Time of Note DATE: 07/09/16 TIME: 19:17 Assessment/Plan VTE Prophylaxis VTE Prophylaxis Intervention: SCD's Lines/Catheters IV Catheter Type (from Nrs): Saline Lock Assessment/Plan Assessment/Plan 1. Sepsis secondary to pneumonia, treated with Rocephin and azithromycin. 2. End-stage renal disease status post failed kidney transplant, now on peritoneal dialysis. Continue PD. 3. History of gout. Continue home allopurinol. 4. Hypertension. Continue home Norvasc. 5. Hypocalcemia: s/p parathyroidectomy: cont calcium supplement. Endocrine managing 6. Herpes Labialis: cont acyclovir 7. Anemia: acute on chronic: cont Epogen. Will transfuse today if pt willing 8. Thrombocytopenia: will check abd us to eval for splenomegaly (to see sequestration is the cause) Subjective 24 Hr Interval Summary Free Text/Dictation feeling better, but c/o weakness Exam/Review of Systems Vital Signs Vitals Vital Signs Date Time Temp Pulse Resp B/P Pulse Ox O2 Delivery O2 Flow Rate FiO2 07/09/16 07:49 98.4 101 17 103/66 96 07/08/16 23:55 Room Air Intake and Output 07/08/16 07/08/16 07/09/16 15:00 23:00 07:00 Intake Total 300 ml 500 ml Balance 300 ml 500 ml Exam Constitutional: alert, oriented Head: atraumatic, normocephalic Eyes: other (right eye is red) ENMT: other (upper lips and righ sided facial herpetic lesion) Respiratory: clear to auscultation, normal air movement Cardiovascular: other (tachycardic) Gastrointestinal: soft Extremities: normal pulses Results Result Diagram: 07/09/16 0425 07/09/16 0425 Results 24 hrs Laboratory Tests Test 07/09/16 04:25 07/09/16 13:31 07/09/16 13:33 Alanine Aminotransferase (ALT/SGPT) 33 Albumin 3.3 # Albumin/Globulin Ratio 0.89 Alkaline Phosphatase 87 Anion Gap 24 H Anisocytosis 2+ Aspartate Amino Transf (AST/SGOT) 28 Band Neutrophils % 2.0 Blood Morphology Comment Blood Urea Nitrogen 93 H Calcium Level 7.4 L Carbon Dioxide Level 22 Chloride Level 88 L Creatinine 20.77 H Differential Comment MANUAL DIFF Direct Bilirubin 0.00 Eosinophils # 0.3 Eosinophils % 3.0 Ferritin 2870.0 H Giant Platelets RARE Globulin 3.70 H Glucose Level 101 Hematocrit 23.6 L Hemoglobin 7.1 L Hypochromasia 2+ Indirect Bilirubin 0.0 Large Platelets OCCASIONAL Lymphocytes # 1.8 Lymphocytes % 19.0 Mean Corpuscular Hemoglobin 17.3 L Mean Corpuscular Hemoglobin Concent 30.0 L Mean Corpuscular Volume 57.6 L Mean Platelet Volume 11.0 H Microcytosis 2+ Monocytes # 1.0 H Monocytes % 10.0 Neutrophils # 6.3 Neutrophils % 66.0 Parathyroid Hormone (Intact) Platelet Count 69 L Platelet Estimate PLT APPEAR DECREASED Potassium Level 3.8 Red Blood Count 4.10 L Red Cell Distribution Width 24.5 H Sodium Level 130 L Total Bilirubin 0.0 L Total Protein 7.0 # White Blood Count 9.5 Free Thyroxine 1.33 Free Thyroxine Index 2.05 Thyroid Stimulating Hormone (TSH) 1.490 Thyroxine (T4) 4.9 L Triiodothyronine (T3) Uptake 41.9 H Ionized Calcium (Measured) 1.0 L Phosphorus Level 6.4 H Medications Medications Current Medications Calcium Carbonate (Oyster Shell Calcium) 3 gm QID GTB Last administered on 17:58; Admin Dose 3 GM; Start 07/08/16 at 09:00 Allopurinol (Zyloprim) 100 mg DAILY PO Last administered on 07/09/16 09:23; Admin Dose 100 MG; Start 07/08/16 at 09:00 Lisinopril (Zestril) 10 mg DAILY PO ; Start 07/08/16 at 09:00; Status Future Hold Metoprolol Tartrate (Lopressor) 50 mg BID PO ; Start 07/08/16 at 09:00 Amlodipine Besylate (Norvasc) 5 mg BID PO ; Start 07/08/16 at 09:00 Aspirin (Aspirin) 81 mg DAILY PO Last administered on 07/09/16 09:22; Admin Dose 81 MG; Start 07/08/16 at 09:00 Pantoprazole Sodium (Protonix) 20 mg BID@06,18 PO Last administered on 05:37; Admin Dose 20 MG; Start 07/08/16 at 06:00 Trazodone HCl (Desyrel) 50 mg HS PO Last administered on 07/08/16 22:02; Admin Dose 50 MG; Start 07/08/16 at 21:00 Midodrine (Proamatine) 5 mg BID@,17 PRN PO SBP less than 100 Last administered on 07/08/16 19:05; Admin Dose 5 MG; Start 07/08/16 at 05:30 Tramadol HCl (Ultram) 50 mg Q8 PRN GTB pain; Start 07/08/16 at 05:30 Cyclobenzaprine HCl (Flexeril) 5 mg Q8 PRN PO muscle spasm; Start 07/08/16 at 05 :30 Acetaminophen/ Hydrocodone Bitart ([place] (5/325)) 1 tab Q6 PRN GTB pain Last administered on 07/09/16 09:20; Admin Dose 1 TAB; Start 07/08/16 at 05:30 Ondansetron HCl (Zofran Tab) 4 mg Q4 PRN PO NAUSEA AND/OR VOMITING Last administered on 07/09/16 06:39; Admin Dose 4 MG; Start 07/08/16 at 05:30 Morphine Sulfate (morphine) 4 mg Q4H PRN IV pain Last administered on 07/09/16 17:59; Admin Dose 4 MG; Start 07/08/16 at 05:30 Ergocalciferol 77485 unit 50,000 unit Ledbetter@09 PO ; Start 07/13/16 at 09:00 Azithromycin 250 ml @ 250 mls/hr Q24H IVPB Last administered on 07/09/16 06:12 ; Admin Dose 250 MLS/HR; Start 07/08/16 at 06:00 Ceftriaxone Sodium (Rocephin) 50 ml @ 100 mls/hr Q24H IVPB Last administered on 07/09/16 05:37; Admin Dose 100 MLS/HR; Start 07/08/16 at 06:00 Morphine Sulfate (morphine) 2 mg Q3H PRN IV SEVERE PAIN LEVEL 7-10 Last administered on 07/08/16 22:03; Admin Dose 2 MG; Start 07/08/16 at 06:00 Epoetin Gunner (Epogen (Esrd)) 10,000 units Ledbetter@17 SC ; Start 07/13/16 at 17:00 Acetaminophen 650 mg 650 mg Q4H PRN PO PAIN AND OR ELEVATED TEMP Last administered on 07/08/16 16:32; Admin Dose 650 MG; Start 07/08/16 at 08:30 Ganciclovir/ Dextrose (Cytovene/D5W) 100 ml @ 100 mls/hr TuThSa@21 IVPB Last administered on 07/09/16 00:27; Admin Dose 100 MLS/HR; Start 07/08/16 at 21:00 Meclizine HCl (Antivert) 25 mg Q8H PRN PO dizziness Last administered on 09:20; Admin Dose 25 MG; Start 07/08/16 at 22:00 Sodium Chloride (Nacl) 2 gm BID PO Last administered on 07/09/16 15:27; Admin Dose 2 GM; Start 07/09/16 at 12:00 Calcitriol (Rocaltrol) 0.25 mcg BID PO ; Start 07/09/16 at 21:00 Docusate Sodium (Colace) 100 mg BID PO Last administered on 07/09/16 15:27; Admin Dose 100 MG; Start 07/09/16 at 13:00 STEPHANIE WELLS MD Jul 09, 2016 19:17
[2016-07-09 20:15] VITALS: BP 126/71; RESP 20
[2016-07-09 20:53] LABS: FLUID APPEARANCE CLEAR; FLUID RBC EST 0; FLUID TYPE PERITONEAL; FLUID WBC'S 1 /cmm
[2016-07-09] MEDS: traZODone 50 MG TAB PO SCH (21:17)
[2016-07-09 22:14] LABS: FLUID LYMPHOCYTES 0 %; FLUID NEUTROPHILS 0 %
[2016-07-10] MEDS: SODIUM CHLORIDE 1 GM TAB PO SCH ×3 (00:07→20:09)
[2016-07-10] MEDS: CEFTRIAXONE 1 GM/50 ML (PMX) 50 ML IVPB SCH (05:01)
[2016-07-10 05:28] LABS: HEMATOCRIT 21.8 % (42.0-52.0); MEAN CORPUSCULAR HEMOGLOBIN 17.4 pg (29.0-33.0); MEAN CORPUSCULAR HGB CONC 30.5 g/dl (32.0-37.0); PLATELET COUNT 84 10^3/UL (140-440); RED BLOOD COUNT 3.83 10^6/ul (4.70-6.10); RED CELL DISTRIBUTION WIDTH 25.3 % (11.5-14.5); UNCORRECTED WBC 7.6 10^3/ul (4.8-10.8); WHITE BLOOD COUNT 7.6 10^3/ul (4.8-10.8)
[2016-07-10] MEDS: AZITHROMYCIN 500MG/NS (PMX) 250 ML IVPB SCH (05:43)
[2016-07-10 05:45] LABS: POTASSIUM 3.5 mmol/L (3.5-5.1)
[2016-07-10 05:48] LABS: CALCIUM 7.8 mg/dl (8.4-10.2); PHOSPHORUS 5.6 mg/dl (2.5-4.9)
[2016-07-10 05:49] LABS: MAGNESIUM 2.2 mg/dl (1.7-2.5)
[2016-07-10 06:09] LABS: CREATININE 20.17 mg/dl (0.61-1.24)
[2016-07-10 06:17] LABS: CONDITION 1; LH ANALYZER COMMENTS 1; MEAN PLATELET VOLUME 10.2 fl (7.4-10.4); SUSPECT 1
[2016-07-10 06:19] LABS: HEMOGLOBIN 6.7 g/dl (14.0-18.0)
[2016-07-10] MEDS: PANTOPRAZOLE SODIUM 20 MG TABEC PO SCH ×2 (06:39→17:42)
[2016-07-10 08:15] VITALS: BP 101/74; RESP 20
--- NOTE | 2016-07-10 08:34 | CONS ---
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 He has a long history of hypertension which led to the onset of renal insufficiency. 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 In roughly 2011 the donor kidney failed and he was placed on continuous ambulatory peritoneal dialysis. In the recent past he developed symptoms and issues with secondary or tertiary hyperparathyroidism with PTH levels in the 2000 range and diffuse subcutaneous calcifications. He was on Sensipar but despite this was having issues. He underwent surgical parathyroidectomy for 3 glands at [facility]. This was performed in January 2016. Postoperatively he was reported to have had hungry bone syndrome and the Sensipar was discontinued as his PTH level dropped to 2. His spouse who is a reliable historian reports that his PTH levels umm but he needed to be on extremely high doses of calcium and calcitriol which been slowly being tapered. He is now on 3000 mg of calcium 4 times daily in addition to his phosphorus binding agents and calcitriol 0.25 mg once a day. He is not on Sensipar he is not on immunosuppressive. 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 Please see the assessment of the primary care team Problems: (1) Status post subtotal parathyroidectomy Status: Chronic Comment: He had a low ionized calcium although not severely low. PTH level is pending. If this is truly hungry bone syndrome as the family understood than the PTH level should be elevated given the low ionized calcium if however the PTH level is low or normal as means parathyroid hormone insufficiency state in which case he has postoperative hypoparathyroidism and the treatment for that is rather straightforward. (2) Hypocalcemia syndrome Status: Chronic Comment: This is improving with the increase in the vitamin D. Ultimately I would actually if this is true hypoparathyroidism he is a much larger dose of calcitriol; allowing us to lower the amount of calcium pills he takes per day to a more reasonable quantity we are pending the labs will give us a directions there Consultation Date/Type/Reason Admit Date/Time Jul 08, 2016 at 00:22 Initial Consult Date 07/08/16 Type of Consultation: Endocrinology Reason for Consultation Persistent hypocalcemia status post parathyroidectomy Referring Provider: MERCEDES GARCIA 24 HR Interval Summary Free Text/Dictation Patient reports he is feeling better. Constitutional: no complaints Detailed Summary ENT: no complaints Cardiovascular: no complaints Gastrointestinal: no complaints Musculoskeletal: no complaints Exam/Review of Systems Vital Signs Vitals Vital Signs Date Time Temp Pulse Resp B/P Pulse Ox O2 Delivery O2 Flow Rate FiO2 07/10/16 08:15 98.4 97 20 101/74 94 07/08/16 23:55 Room Air Intake and Output 07/09/16 07/09/16 07/10/16 15:00 23:00 07:00 Intake Total 400 ml 370 ml Balance 400 ml 370 ml Exam Constitutional: alert, oriented Respiratory: clear to auscultation, normal air movement Additional Comments Negative for [place] sign negative Trousseau sign Results Result Diagram: 07/10/16 0426 07/10/16 0426 Results 24 hrs Laboratory Tests Test 07/09/16 13:31 07/09/16 13:33 07/09/16 17:20 07/10/16 04:26 Free Thyroxine 1.33 Free Thyroxine Index 2.05 Thyroid Stimulating Hormone (TSH) 1.490 Thyroxine (T4) 4.9 L Triiodothyronine (T3) Uptake 41.9 H Ionized Calcium (Measured) 1.0 L Phosphorus Level 6.4 H 5.6 H Body Fluid Appearance CLEAR Body Fluid Color COLORLESS Body Fluid Lymphocytes (%) 0 Body Fluid Neutrophils % 0 Body Fluid RBC 0 Body Fluid Type PERITONEAL Body Fluid Volume 50.0 Body Fluid WBC 1 Anion Gap 22 H Blood Morphology Comment Blood Urea Nitrogen 86 H Calcium Level 7.8 L Carbon Dioxide Level 26 Chloride Level 93 L Creatinine 20.17 H Glucose Level 102 Hematocrit 21.8 L Hemoglobin 6.7 *L Magnesium Level 2.2 Mean Corpuscular Hemoglobin 17.4 L Mean Corpuscular Hemoglobin Concent 30.5 L Mean Corpuscular Volume 57.0 L Mean Platelet Volume 10.2 Platelet Count 84 #L Potassium Level 3.5 Red Blood Count 3.83 L Red Cell Distribution Width 25.3 H Sodium Level 137 White Blood Count 7.6 Medications Medications Current Medications Calcium Carbonate (Oyster Shell Calcium) 3 gm QID GTB Last administered on t 21:18; Admin Dose 3 GM; Start 07/08/16 at 09:00 Allopurinol (Zyloprim) 100 mg DAILY PO Last administered on 07/09/16 09:23; Admin Dose 100 MG; Start 07/08/16 at 09:00 Lisinopril (Zestril) 10 mg DAILY PO ; Start 07/08/16 at 09:00; Status Future Hold Metoprolol Tartrate (Lopressor) 50 mg BID PO ; Start 07/08/16 at 09:00 Amlodipine Besylate (Norvasc) 5 mg BID PO ; Start 07/08/16 at 09:00 Aspirin (Aspirin) 81 mg DAILY PO Last administered on 07/09/16 09:22; Admin Dose 81 MG; Start 07/08/16 at 09:00 Pantoprazole Sodium (Protonix) 20 mg BID@18 PO Last administered on 06:39; Admin Dose 20 MG; Start 07/08/16 at 06:00 Trazodone HCl (Desyrel) 50 mg HS PO Last administered on 07/09/16 21:17; Admin Dose 50 MG; Start 07/08/16 at 21:00 Midodrine (Proamatine) 5 mg BID@17 PRN PO SBP less than 100 Last administered on 07/08/16 19:05; Admin Dose 5 MG; Start 07/08/16 at 05:30 Tramadol HCl (Ultram) 50 mg Q8 PRN GTB pain; Start 07/08/16 at 05:30 Cyclobenzaprine HCl (Flexeril) 5 mg Q8 PRN PO muscle spasm; Start 07/08/16 at 05 :30 Acetaminophen/ Hydrocodone Bitart ([place] (5/325)) 1 tab Q6 PRN GTB pain Last administered on 07/09/16 09:20; Admin Dose 1 TAB; Start 07/08/16 at 05:30 Ondansetron HCl (Zofran Tab) 4 mg Q4 PRN PO NAUSEA AND/OR VOMITING Last administered on 07/09/16 06:39; Admin Dose 4 MG; Start 07/08/16 at 05:30 Morphine Sulfate (morphine) 4 mg Q4H PRN IV pain Last administered on 07/09/16 22:12; Admin Dose 4 MG; Start 07/08/16 at 05:30 Ergocalciferol 05508 unit 50,000 unit Ledbetter@09 PO ; Start 07/13/16 at 09:00 Azithromycin 250 ml @ 250 mls/hr Q24H IVPB Last administered on 07/10/16 05:43 ; Admin Dose 250 MLS/HR; Start 07/08/16 at 06:00 Ceftriaxone Sodium (Rocephin) 50 ml @ 100 mls/hr Q24H IVPB Last administered on 07/10/16 05:01; Admin Dose 100 MLS/HR; Start 07/08/16 at 06:00 Morphine Sulfate (morphine) 2 mg Q3H PRN IV SEVERE PAIN LEVEL 7-10 Last administered on 07/08/16 22:03; Admin Dose 2 MG; Start 07/08/16 at 06:00 Epoetin Gunner (Epogen (Esrd)) 10,000 units Ledbetter@17 SC ; Start 07/13/16 at 17:00 Acetaminophen 650 mg 650 mg Q4H PRN PO PAIN AND OR ELEVATED TEMP Last administered on 07/08/16 16:32; Admin Dose 650 MG; Start 07/08/16 at 08:30 Ganciclovir/ Dextrose (Cytovene/D5W) 100 ml @ 100 mls/hr TuThSa@21 IVPB Last administered on 07/09/16 00:27; Admin Dose 100 MLS/HR; Start 07/08/16 at 21:00 Meclizine HCl (Antivert) 25 mg Q8H PRN PO dizziness Last administered on 09:20; Admin Dose 25 MG; Start 07/08/16 at 22:00 Sodium Chloride (Nacl) 2 gm BID PO Last administered on 07/10/16 00:07; Admin Dose 2 GM; Start 07/09/16 at 12:00 Calcitriol (Rocaltrol) 0.25 mcg BID PO Last administered on 07/09/16 21:17; Admin Dose 0.25 MCG; Start 07/09/16 at 21:00 Docusate Sodium (Colace) 100 mg BID PO Last administered on 07/09/16 21:17; Admin Dose 100 MG; Start 07/09/16 at 13:00 JEISON CLARKE MD Jul 10, 2016 08:34
[2016-07-10] MEDS: METOPROLOL 50 MG TAB PO SCH ×2 (08:40→21:00)
[2016-07-10] MEDS: AMLODIPINE 5 MG TAB PO SCH ×2 (08:41→21:00)
[2016-07-10] MEDS: CALCIUM ACETATE 667 MG CAP PO SCH ×3 (09:03→17:42)
[2016-07-10] MEDS: CALCIUM CARBONATE 1.25 GM TAB GTB SCH ×4 (09:04→20:09)
[2016-07-10] MEDS: SEVELAMER 800 MG TAB PO SCH ×3 (09:04→17:42)
[2016-07-10] MEDS: ASPIRIN 81 MG TAB PO SCH (09:05)
[2016-07-10] MEDS: DOCUSATE SODIUM 100 MG CAP PO SCH ×2 (09:05→20:09)
[2016-07-10] MEDS: ALLOPURINOL 100 MG TAB PO SCH (09:05)
[2016-07-10] MEDS: CALCITRIOL 0.25 MCG CAP PO SCH ×2 (09:05→20:09)
[2016-07-10] MEDS: morphine 4 MG/ML VIAL IV PRN (09:14)
[2016-07-10 09:21] LABS: EOSINOPHILS # 0.2 10^3/ul (0.0-0.5); LYMPHOCYTES # 1.7 10^3/ul (0.8-2.9); MONOCYTE # 0.5 10^3/ul (0.3-0.9); NEUTROPHIL # 5.3 10^3/ul (1.6-7.5)
[2016-07-10 09:22] LABS: ANISOCYTOSIS 2+; HYPOCHROMASIA 2+; MICROCYTOSIS 2+; OVALOCYTES OCCASIONAL
--- NOTE | 2016-07-10 13:47 | CONS ---
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 The patient has since been on peritoneal dialysis. The patient also has a history of hungry bone syndrome following parathyroidectomy, a history of mineral bone disorder, history of GERD who presents to [facility] for complaints of dizziness, weakness, and fever. The patient upon arrival to the emergency room was noted to be febrile with temperatures of 102.7. The patient was noted to be hypertensive. Chest x-ray was obtained which showed a right hemidiaphragm and interval development of infiltrate involving right lower lobe concerning for possible pneumonia. The patient was started on IV antibiotics and admitted to med/surg telemetry for further evaluation. receiving 5 exchanges with a cycler at night, alternating between 1.5 and 2.5% dextrose solution with a midday exchange. The patient, however, does ultrafiltration about 1 liter daily. POC reviewed with dr. sergo [place]: Head is normocephalic. NECK: Supple. HEART: Regular rate. LUNGS: Show diminished breath sounds at the base. ABDOMEN: Soft, nontender to palpation. Positive PD catheter, clean, dry, intact. EXTREMITIES: Negative for clubbing, cyanosis, no edema. DERMATOLOGIC: No rashes. MUSCULOSKELETAL: No joint effusions. NEUROLOGIC: No focal deficits. ASSESSMENT AND PLAN: This is a 41-year-old male who presents with: 1. End-stage renal disease, currently on peritoneal dialysis. Plan is to continue current home regimen. We will do a nighttime cycler with 5 exchanges 1.5 dextrose solution in order to minimize ultrafiltration in the setting of hypertension. We will also can do an additional midday exchange. We will monitor ultrafiltration closely, minimizing no more than 1 liter daily. by labwork, doesn't appear to be getting adequate clearance but will need to fu with outpatient and evaluate rx in light of PET analysis result. 2. Mineral bone disorder with reported history of hungry bone syndrome secondary to recent parathyroidectomy in January. The patient is currently on calcium carbonate, Calcitriol and ergocalciferol. At this point, the patient's calcium levels appear to be near normal limits. We will continue to monitor. An endocrinology consult was placed. We will follow up recommendations. 3. Anemia of chronic disease. The patient is usually receiving 30 to 60,000 units of Epogen weekly. We will give the patient a dose of Epogen today 20,000 units, monitor H and H levels closely. May require transfusion if hemoglobin levels fall below 7 mg/dL. 4. Hyponatremia secondary to end-stage renal disease. Continue peritoneal dialysis. Limit free water intake. 5. Sepsis secondary to pneumonia. The patient is currently on IV antibiotics. We will continue. Follow up cultures. We will also check a peritoneal fluid for cell count, cytology and culture. 6. History of gout. Continue allopurinol. 7. Hypertension, possibly due to underlying sepsis. We will monitor closely, minimize ultrafiltration with peritoneal dialysis. 8. Hyperphosphatemia secondary to end-stage renal disease. We will continue the patient on phosphate binders. 9. History of hypertension. The patient is currently hypotensive as stated above. We will also place parameters on blood pressure medications. Objective Vital Signs Date Time Temp Pulse Resp B/P Pulse Ox O2 Delivery O2 Flow Rate FiO2 07/10/16 08:15 98.4 97 20 101/74 94 07/08/16 23:55 Room Air Intake and Output 07/09/16 07/09/16 07/10/16 15:00 23:00 07:00 Intake Total 400 ml 370 ml Balance 400 ml 370 ml Results/Medications Result Diagram: 07/10/16 0426 07/10/16 0426 Results 24 hrs Laboratory Tests Test 07/09/16 17:20 07/10/16 04:26 Body Fluid Appearance CLEAR Body Fluid Color COLORLESS Body Fluid Lymphocytes (%) 0 Body Fluid Neutrophils % 0 Body Fluid RBC 0 Body Fluid Type PERITONEAL Body Fluid Volume 50.0 Body Fluid WBC 1 Anion Gap 22 H Anisocytosis 2+ Blood Morphology Comment Blood Urea Nitrogen 86 H Calcium Level 7.8 L Carbon Dioxide Level 26 Chloride Level 93 L Creatinine 20.17 H Differential Comment MANUAL DIFF Dimorphic Red Blood Cells 1+ Eosinophils # 0.2 Eosinophils % 2.0 Glucose Level 102 Hematocrit 21.8 L Hemoglobin 6.7 *L Hypochromasia 2+ Lymphocytes # 1.7 Lymphocytes % 22.0 Magnesium Level 2.2 Mean Corpuscular Hemoglobin 17.4 L Mean Corpuscular Hemoglobin Concent 30.5 L Mean Corpuscular Volume 57.0 L Mean Platelet Volume 10.2 Microcytosis 2+ Monocytes # 0.5 Monocytes % 6.0 Neutrophils # 5.3 Neutrophils % 70.0 Ovalocytes OCCASIONAL Phosphorus Level 5.6 H Platelet Count 84 #L Potassium Level 3.5 Red Blood Count 3.83 L Red Cell Distribution Width 25.3 H Sodium Level 137 White Blood Count 7.6 Medications Current Medications Calcium Carbonate (Oyster Shell Calcium) 3 gm QID GTB Last administered on 12:38; Admin Dose 3 GM; Start 07/08/16 at 09:00 Allopurinol (Zyloprim) 100 mg DAILY PO Last administered on 07/10/16 09:05; Admin Dose 100 MG; Start 07/08/16 at 09:00 Lisinopril (Zestril) 10 mg DAILY PO ; Start 07/08/16 at 09:00; Status Future Hold Metoprolol Tartrate (Lopressor) 50 mg BID PO ; Start 07/08/16 at 09:00 Amlodipine Besylate (Norvasc) 5 mg BID PO ; Start 07/08/16 at 09:00 Aspirin (Aspirin) 81 mg DAILY PO Last administered on 07/10/16 09:05; Admin Dose 81 MG; Start 07/08/16 at 09:00 Pantoprazole Sodium (Protonix) 20 mg BID@,18 PO Last administered on 06:39; Admin Dose 20 MG; Start 07/08/16 at 06:00 Trazodone HCl (Desyrel) 50 mg HS PO Last administered on 07/09/16 21:17; Admin Dose 50 MG; Start 07/08/16 at 21:00 Midodrine (Proamatine) 5 mg BID@,17 PRN PO SBP less than 100 Last administered on 07/08/16 19:05; Admin Dose 5 MG; Start 07/08/16 at 05:30 Tramadol HCl (Ultram) 50 mg Q8 PRN GTB pain; Start 07/08/16 at 05:30 Cyclobenzaprine HCl (Flexeril) 5 mg Q8 PRN PO muscle spasm; Start 07/08/16 at 05 :30 Acetaminophen/ Hydrocodone Bitart ([place] (5/325)) 1 tab Q6 PRN GTB pain Last administered on 07/09/16 09:20; Admin Dose 1 TAB; Start 07/08/16 at 05:30 Ondansetron HCl (Zofran Tab) 4 mg Q4 PRN PO NAUSEA AND/OR VOMITING Last administered on 07/09/16 06:39; Admin Dose 4 MG; Start 07/08/16 at 05:30 Morphine Sulfate (morphine) 4 mg Q4H PRN IV pain Last administered on 07/10/16 09:14; Admin Dose 4 MG; Start 07/08/16 at 05:30 Ergocalciferol 53173 unit 50,000 unit Ledbetter@09 PO ; Start 07/13/16 at 09:00 Azithromycin 250 ml @ 250 mls/hr Q24H IVPB Last administered on 07/10/16 05:43 ; Admin Dose 250 MLS/HR; Start 07/08/16 at 06:00 Ceftriaxone Sodium (Rocephin) 50 ml @ 100 mls/hr Q24H IVPB Last administered on 07/10/16 05:01; Admin Dose 100 MLS/HR; Start 07/08/16 at 06:00 Morphine Sulfate (morphine) 2 mg Q3H PRN IV SEVERE PAIN LEVEL 7-10 Last administered on 07/08/16 22:03; Admin Dose 2 MG; Start 07/08/16 at 06:00 Epoetin Gunner (Epogen (Esrd)) 10,000 units Ledbetter@17 SC ; Start 07/13/16 at 17:00 Acetaminophen 650 mg 650 mg Q4H PRN PO PAIN AND OR ELEVATED TEMP Last administered on 07/08/16 16:32; Admin Dose 650 MG; Start 07/08/16 at 08:30 Ganciclovir/ Dextrose (Cytovene/D5W) 100 ml @ 100 mls/hr TuThSa@21 IVPB Last administered on 07/09/16 00:27; Admin Dose 100 MLS/HR; Start 07/08/16 at 21:00 Meclizine HCl (Antivert) 25 mg Q8H PRN PO dizziness Last administered on 09:20; Admin Dose 25 MG; Start 07/08/16 at 22:00 Sodium Chloride (Nacl) 2 gm BID PO Last administered on 07/10/16 09:05; Admin Dose 2 GM; Start 07/09/16 at 12:00 Calcitriol (Rocaltrol) 0.25 mcg BID PO Last administered on 07/10/16 09:05; Admin Dose 0.25 MCG; Start 07/09/16 at 21:00 Docusate Sodium (Colace) 100 mg BID PO Last administered on 07/10/16 09:05; Admin Dose 100 MG; Start 07/09/16 at 13:00 MANISH CUNNINGHAM MD Jul 10, 2016 13:47
--- NOTE | 2016-07-10 14:37 | PN ---
DATE: SUBJECTIVE: No acute changes overnight. The patient is alert, eating lunch, looks comfortable. Fa abimael at bedside. No fevers. He is on: 1. Acyclovir. 2. Zithromax 3. Rocephin. LABORATORY DATA: WBC 7.6, H and H 6.7 and 21.8, platelets 84, no shift. Indwelling subperitoneal d ialysis catheter. DIAGNOSTICS: CT of the brain on admission revealed no intracranial hemorrhage or acute abnormalitie s. Chest x-ray showed elevation of right hemidiaphragm with interval development of infiltrates inv olving the right lower lobe concerning for possible pneumonia. ALLERGIES: None. PHYSICAL EXAMINATION: GENERAL: This is a well-nourished, well-developed, middle-aged man who is alert, sitting comfortabl y in bed and in no distress. HEENT: Head atraumatic, normocephalic. Sclerae anicteric. Buccal mucosa pink. Patient has signif icant lesions in his mouth as well as upper lip and nasal area and face, mostly on the right side. NECK: Supple, trachea midline. CHEST: Rise symmetrical. Breath sounds diminished to bases. HEART: S1, S2. ABDOMEN: Soft, bowel tones present. EXTREMITIES: Without cyanosis. ASSESSMENT: 1. Community-acquired pneumonia. 2. Facial shingles. 3. End-stage renal disease, peritoneal dialysis dependent. PLAN: The patient remains stable. We are going to change ganciclovir to acyclovir. Continue manag ement as per primary team. Consider blood transfusion if not done. Supportive care and pain manage ment of above was discussed with the patient and family at bedside. Dictated By: MELLISSA SARAVIA [employer] OPERATOR for BIRD PORTILLO MD NI/NTS Conf#: [id number] DID#: [id number] CC: MERCEDES GARCIA MD;*EndCC*
[2016-07-10] MEDS: ACYCLOVIR 800 MG TAB PO SCH (16:12)
--- NOTE | 2016-07-10 16:22 | PN ---
Date/Time of Note Date/Time of Note DATE: 07/10/16 TIME: 16:19 Assessment/Plan VTE Prophylaxis VTE Prophylaxis Intervention: SCD's Lines/Catheters IV [facility]atheter [facility] (from [facility] Saline Lock Urinary Cath still in place: No Assessment/Plan Assessment/Plan 1. Resolving Sepsis secondary to pneumonia, treated with Rocephin and azithromycin. 2. End-stage renal disease status post failed kidney transplant, now on peritoneal dialysis. Continue PD. 3. History of gout. Continue home allopurinol. 4. Hypertension. Continue home Norvasc. 5. Hypocalcemia: s/p parathyroidectomy: cont calcium supplement. Endocrine managing 6. Herpes Labialis: cont acyclovir. will f/u viral serology results 7. Severe Microcytic Anemia: acute on chronic: cont Epogen. Will transfuse today if pt willing 8. Thrombocytopenia: will check abd us to eval for splenomegaly (to see sequestration is the cause) Subjective 24 Hr Interval Summary Free Text/Dictation c/o weakness Exam/Review of Systems Vital Signs Vitals Vital Signs Date Time Temp Pulse Resp B/P Pulse Ox O2 Delivery O2 Flow Rate FiO2 07/10/16 08:15 98.4 97 20 101/74 94 07/08/16 23:55 Room Air Intake and Output 07/09/16 07/09/16 07/10/16 15:00 23:00 07:00 Intake Total 400 ml 370 ml Balance 400 ml 370 ml Exam Constitutional: alert, oriented Head: atraumatic, normocephalic Eyes: EOMI, PERRL, other (RIGHT EYE REDNESS) ENMT: other (Upper lip and right side of face lesion, likely from healing herpes. also righ side of face is swollen) Respiratory: clear to auscultation, normal air movement Cardiovascular: other (TACHYCARDIC WITH REGULAR RHYTHM) Gastrointestinal: non-tender, soft Extremities: normal pulses Results Result Diagram: 07/10/16 0426 07/10/16 0426 Results 24 hrs Laboratory Tests Test 07/09/16 17:20 07/10/16 04:26 Body Fluid Appearance CLEAR Body Fluid Color COLORLESS Body Fluid Lymphocytes (%) 0 Body Fluid Neutrophils % 0 Body Fluid RBC 0 Body Fluid Type PERITONEAL Body Fluid Volume 50.0 Body Fluid WBC 1 Anion Gap 22 H Anisocytosis 2+ Blood Morphology Comment Blood Urea Nitrogen 86 H Calcium Level 7.8 L Carbon Dioxide Level 26 Chloride Level 93 L Creatinine 20.17 H Differential Comment MANUAL DIFF Dimorphic Red Blood Cells 1+ Eosinophils # 0.2 Eosinophils % 2.0 Glucose Level 102 Hematocrit 21.8 L Hemoglobin 6.7 *L Hypochromasia 2+ Lymphocytes # 1.7 Lymphocytes % 22.0 Magnesium Level 2.2 Mean Corpuscular Hemoglobin 17.4 L Mean Corpuscular Hemoglobin Concent 30.5 L Mean Corpuscular Volume 57.0 L Mean Platelet Volume 10.2 Microcytosis 2+ Monocytes # 0.5 Monocytes % 6.0 Neutrophils # 5.3 Neutrophils % 70.0 Ovalocytes OCCASIONAL Phosphorus Level 5.6 H Platelet Count 84 #L Potassium Level 3.5 Red Blood Count 3.83 L Red Cell Distribution Width 25.3 H Sodium Level 137 White Blood Count 7.6 Medications Medications Current Medications Calcium Carbonate (Oyster Shell Calcium) 3 gm QID GTB Last administered on 12:38; Admin Dose 3 GM; Start 07/08/16 at 09:00 Allopurinol (Zyloprim) 100 mg DAILY PO Last administered on 07/10/16 09:05; Admin Dose 100 MG; Start 07/08/16 at 09:00 Lisinopril (Zestril) 10 mg DAILY PO ; Start 07/08/16 at 09:00; Status Future Hold Metoprolol Tartrate (Lopressor) 50 mg BID PO ; Start 07/08/16 at 09:00 Amlodipine Besylate (Norvasc) 5 mg BID PO ; Start 07/08/16 at 09:00 Aspirin (Aspirin) 81 mg DAILY PO Last administered on 07/10/16 09:05; Admin Dose 81 MG; Start 07/08/16 at 09:00 Pantoprazole Sodium (Protonix) 20 mg BID@06,18 PO Last administered on 06:39; Admin Dose 20 MG; Start 07/08/16 at 06:00 Trazodone HCl (Desyrel) 50 mg HS PO Last administered on 07/09/16 21:17; Admin Dose 50 MG; Start 07/08/16 at 21:00 Midodrine (Proamatine) 5 mg BID@,17 PRN PO SBP less than 100 Last administered on 07/08/16 19:05; Admin Dose 5 MG; Start 07/08/16 at 05:30 Tramadol HCl (Ultram) 50 mg Q8 PRN GTB pain; Start 07/08/16 at 05:30 Cyclobenzaprine HCl (Flexeril) 5 mg Q8 PRN PO muscle spasm; Start 07/08/16 at 05 :30 Acetaminophen/ Hydrocodone Bitart ([place] (5/325)) 1 tab Q6 PRN GTB pain Last administered on 07/09/16 09:20; Admin Dose 1 TAB; Start 07/08/16 at 05:30 Ondansetron HCl (Zofran Tab) 4 mg Q4 PRN PO NAUSEA AND/OR VOMITING Last administered on 07/09/16 06:39; Admin Dose 4 MG; Start 07/08/16 at 05:30 Morphine Sulfate (morphine) 4 mg Q4H PRN IV pain Last administered on 07/10/16 09:14; Admin Dose 4 MG; Start 07/08/16 at 05:30 Ergocalciferol 83682 unit 50,000 unit Ledbetter@09 PO ; Start 07/13/16 at 09:00 Azithromycin 250 ml @ 250 mls/hr Q24H IVPB Last administered on 07/10/16 05:43 ; Admin Dose 250 MLS/HR; Start 07/08/16 at 06:00 Ceftriaxone Sodium (Rocephin) 50 ml @ 100 mls/hr Q24H IVPB Last administered on 07/10/16 05:01; Admin Dose 100 MLS/HR; Start 07/08/16 at 06:00 Morphine Sulfate (morphine) 2 mg Q3H PRN IV SEVERE PAIN LEVEL 7-10 Last administered on 07/08/16 22:03; Admin Dose 2 MG; Start 07/08/16 at 06:00 Epoetin Gunner (Epogen (Esrd)) 10,000 units Ledbetter@17 SC ; Start 07/13/16 at 17:00 Acetaminophen (Tylenol Tab) 650 mg Q4H PRN PO PAIN AND OR ELEVATED TEMP Last administered on 07/08/16 16:32; Admin Dose 650 MG; Start 07/08/16 at 08:30 Meclizine HCl (Antivert) 25 mg Q8H PRN PO dizziness Last administered on 09:20; Admin Dose 25 MG; Start 07/08/16 at 22:00 Sodium Chloride (Nacl) 2 gm BID PO Last administered on 07/10/16 09:05; Admin Dose 2 GM; Start 07/09/16 at 12:00 Calcitriol (Rocaltrol) 0.25 mcg BID PO Last administered on 07/10/16 09:05; Admin Dose 0.25 MCG; Start 07/09/16 at 21:00 Docusate Sodium (Colace) 100 mg BID PO Last administered on 07/10/16 09:05; Admin Dose 100 MG; Start 07/09/16 at 13:00 Acyclovir (Zovirax) 800 mg BID PO ; Start 07/10/16 at 15:30 STEPHANIE WELLS MD Jul 10, 2016 16:21
[2016-07-10 19:15] VITALS: BP 106/74; RESP 18
[2016-07-10 19:22] VITALS: BP 138/67; RESP 18
[2016-07-10] MEDS: traZODone 50 MG TAB PO SCH (20:09)
[2016-07-10 22:50] VITALS: BP 109/78; PULSE 92; RESP 17
[2016-07-10 23:15] VITALS: BP 121/77; PULSE 88; RESP 17
[2016-07-10 23:30] VITALS: BP 119/79; PULSE 87; RESP 17
[2016-07-11] VITALS (7 sets, daily range): BP systolic 125–135; BP diastolic 75–87; PULSE 77–98; RESP 17–18
[2016-07-11] MEDS: ACYCLOVIR 800 MG TAB PO SCH ×3 (00:32→20:45)
[2016-07-11] MEDS: CEFTRIAXONE 1 GM/50 ML (PMX) 50 ML IVPB SCH (05:02)
[2016-07-11] MEDS: PANTOPRAZOLE SODIUM 20 MG TABEC PO SCH ×2 (05:48→17:55)
[2016-07-11] MEDS: AZITHROMYCIN 500MG/NS (PMX) 250 ML IVPB SCH (05:49)
--- NOTE | 2016-07-11 08:21 | CONS ---
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 He has a long history of hypertension which led to the onset of renal insufficiency. 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 In roughly 2011 the donor kidney failed and he was placed on continuous ambulatory peritoneal dialysis. In the recent past he developed symptoms and issues with secondary or tertiary hyperparathyroidism with PTH levels in the 2000 range and diffuse subcutaneous calcifications. He was on Sensipar but despite this was having issues. He underwent surgical parathyroidectomy for 3 glands at [facility]. This was performed in January 2016. Postoperatively he was reported to have had hungry bone syndrome and the Sensipar was discontinued as his PTH level dropped to 2. His spouse who is a reliable historian reports that his PTH levels umm but he needed to be on extremely high doses of calcium and calcitriol which been slowly being tapered. He is now on 3000 mg of calcium 4 times daily in addition to his phosphorus binding agents and calcitriol 0.25 mg once a day. He is not on Sensipar he is not on immunosuppressive. 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 Please see the assessment of the primary care team Problems: (1) Anemia in chronic kidney disease (CKD) Status: Chronic Comment: His blood counts have dropped rather significantly. The primary care team will manage this. (2) Status post subtotal parathyroidectomy Status: Chronic Comment: Noted. The PTH level still pending which therefore makes a formalized diagnosis difficult at this moment. (3) Essential hypertension Status: Chronic Comment: He is well controlled now (4) End stage renal disease due to hypertension Status: Chronic Comment: He remains on CAPD (5) Hypocalcemia syndrome Status: Chronic Comment: The question is raised about whether this is hungry bone syndrome 6 months postoperatively versus postoperatively hypoparathyroidism versus some combination thereof. The PTH level would be helpful determinant especially since it was drawn all the patient had hypocalcemia and a documented low ionized calcium. The PTH level in the normal circumstances there should be very high. If it is not this would indicate parathyroid hormone insufficiency. Regardless of the cause it is my opinion he should be treated with higher doses of calcitriol which would then allow you to not have him take such a massive amount of oral calcium pills a day. Please note that he will be seeing the endocrinology division at [facility] on Thursday for an outpatient appointment. It will ultimately be their decision about how to approach this. Consultation Date/Type/Reason Admit Date/Time Jul 08, 2016 at 00:22 Initial Consult Date 07/08/16 Type of Consultation: Endocrinology Reason for Consultation Hypoparathyroidism postoperatively versus prolonged hungry bone syndrome versus combination of the 2 with hypocalcemia Referring Provider: MERCEDES GARCIA 24 HR Interval Summary Constitutional: no complaints Detailed Summary Respiratory: cough (Cough is decreased) Cardiovascular: no complaints Gastrointestinal: no complaints Exam/Review of Systems Vital Signs Vitals Vital Signs Date Time Temp Pulse Resp B/P Pulse Ox O2 Delivery O2 Flow Rate FiO2 07/11/16 03:30 98.4 78 17 125/75 Room Air 07/10/16 19:22 97 Intake and Output 07/10/16 07/10/16 07/11/16 15:00 23:00 07:00 Intake Total 560 ml 1040 ml Balance 560 ml 1040 ml Exam Constitutional: alert, oriented Respiratory: normal air movement Cardiovascular: nl pulses, regular rate and rhythm Results Result Diagram: 07/10/16 0426 07/10/16 0426 Medications Medications Current Medications Calcium Carbonate (Oyster Shell Calcium) 3 gm QID GTB Last administered on 20:09; Admin Dose 3 GM; Start 07/08/16 at 09:00 Allopurinol (Zyloprim) 100 mg DAILY PO Last administered on 07/10/16 09:05; Admin Dose 100 MG; Start 07/08/16 at 09:00 Lisinopril (Zestril) 10 mg DAILY PO ; Start 07/08/16 at 09:00; Status Future Hold Metoprolol Tartrate (Lopressor) 50 mg BID PO ; Start 07/08/16 at 09:00 Amlodipine Besylate (Norvasc) 5 mg BID PO ; Start 07/08/16 at 09:00 Aspirin (Aspirin) 81 mg DAILY PO Last administered on 07/10/16 09:05; Admin Dose 81 MG; Start 07/08/16 at 09:00 Pantoprazole Sodium (Protonix) 20 mg BID@18 PO Last administered on 17:42; Admin Dose 20 MG; Start 07/08/16 at 06:00 Trazodone HCl (Desyrel) 50 mg HS PO Last administered on 07/10/16 20:09; Admin Dose 50 MG; Start 07/08/16 at 21:00 Midodrine (Proamatine) 5 mg BID@17 PRN PO SBP less than 100 Last administered on 07/08/16 19:05; Admin Dose 5 MG; Start 07/08/16 at 05:30 Tramadol HCl (Ultram) 50 mg Q8 PRN GTB pain; Start 07/08/16 at 05:30 Cyclobenzaprine HCl (Flexeril) 5 mg Q8 PRN PO muscle spasm; Start 07/08/16 at 05 :30 Acetaminophen/ Hydrocodone Bitart ([place] (5/325)) 1 tab Q6 PRN GTB pain Last administered on 07/09/16 09:20; Admin Dose 1 TAB; Start 07/08/16 at 05:30 Ondansetron HCl (Zofran Tab) 4 mg Q4 PRN PO NAUSEA AND/OR VOMITING Last administered on 07/09/16 06:39; Admin Dose 4 MG; Start 07/08/16 at 05:30 Morphine Sulfate (morphine) 4 mg Q4H PRN IV pain Last administered on 07/10/16 09:14; Admin Dose 4 MG; Start 07/08/16 at 05:30 Ergocalciferol 85426 unit 50,000 unit Ledbetter@09 PO ; Start 07/13/16 at 09:00 Azithromycin 250 ml @ 250 mls/hr Q24H IVPB Last administered on 07/11/16 05:49 ; Admin Dose 250 MLS/HR; Start 07/08/16 at 06:00 Ceftriaxone Sodium (Rocephin) 50 ml @ 100 mls/hr Q24H IVPB Last administered on 07/11/16 05:02; Admin Dose 100 MLS/HR; Start 07/08/16 at 06:00 Morphine Sulfate (morphine) 2 mg Q3H PRN IV SEVERE PAIN LEVEL 7-10 Last administered on 07/08/16 22:03; Admin Dose 2 MG; Start 07/08/16 at 06:00 Epoetin Gunner (Epogen (Esrd)) 10,000 units Ledbetter@17 SC ; Start 07/13/16 at 17:00 Acetaminophen (Tylenol Tab) 650 mg Q4H PRN PO PAIN AND OR ELEVATED TEMP Last administered on 07/08/16 16:32; Admin Dose 650 MG; Start 07/08/16 at 08:30 Meclizine HCl (Antivert) 25 mg Q8H PRN PO dizziness Last administered on 09:20; Admin Dose 25 MG; Start 07/08/16 at 22:00 Sodium Chloride (Nacl) 2 gm BID PO Last administered on 07/10/16 20:09; Admin Dose 2 GM; Start 07/09/16 at 12:00 Calcitriol (Rocaltrol) 0.25 mcg BID PO Last administered on 07/10/16 20:09; Admin Dose 0.25 MCG; Start 07/09/16 at 21:00 Docusate Sodium (Colace) 100 mg BID PO Last administered on 07/10/16 20:09; Admin Dose 100 MG; Start 07/09/16 at 13:00 Acyclovir (Zovirax) 800 mg BID PO Last administered on 07/11/16 00:32; Admin Dose 800 MG; Start 07/10/16 at 15:30 JEISON CLARKE MD Jul 11, 2016 08:21
[2016-07-11] MEDS: AMLODIPINE 5 MG TAB PO SCH ×2 (09:00→21:00)
[2016-07-11] MEDS: METOPROLOL 50 MG TAB PO SCH ×2 (09:00→21:00)
[2016-07-11] MEDS: ONDANSETRON 4 MG TAB PO PRN (09:08)
[2016-07-11] MEDS: MECLIZINE 25 MG TAB PO PRN (09:08)
[2016-07-11] MEDS: morphine 4 MG/ML VIAL IV PRN (09:09)
[2016-07-11] MEDS: SEVELAMER 800 MG TAB PO SCH ×3 (09:23→17:24)
[2016-07-11] MEDS: CALCIUM ACETATE 667 MG CAP PO SCH ×3 (09:23→17:24)
[2016-07-11] MEDS: ALLOPURINOL 100 MG TAB PO SCH (09:24)
[2016-07-11] MEDS: DOCUSATE SODIUM 100 MG CAP PO SCH ×2 (09:24→20:45)
[2016-07-11] MEDS: ASPIRIN 81 MG TAB PO SCH (09:24)
[2016-07-11] MEDS: CALCIUM CARBONATE 1.25 GM TAB GTB SCH ×5 (09:24→20:43)
[2016-07-11] MEDS: CALCITRIOL 0.25 MCG CAP PO SCH ×2 (09:25→20:46)
[2016-07-11] MEDS: SODIUM CHLORIDE 1 GM TAB PO SCH ×2 (09:26→20:46)
[2016-07-11 09:37] LABS: HEMATOCRIT 23.7 % (42.0-52.0); HEMOGLOBIN 7.4 g/dl (14.0-18.0)
[2016-07-11] MEDS ORDERED: MAGNESIUM HYDROXIDE 30ML CUP PO PRN (12:00)
--- NOTE | 2016-07-11 13:26 | CONS ---
Date/Time of Note Date/Time of Note DATE: 07/11/16 TIME: 13:23 Consult Date/Type/Reason Admit Date/Time Jul 08, 2016 at 00:22 Initial Consult Date 07/08/16 Type of Consultation: ID Ordering Provider: MERCEDES GARCIA Subjective no acute changes, sleeping, no fevers, nad Objective Vital Signs Date Time Temp Pulse Resp B/P Pulse Ox O2 Delivery O2 Flow Rate FiO2 07/11/16 08:00 97.8 74 18 135/87 90 07/11/16 03:30 Room Air Intake and Output 07/10/16 07/10/16 07/11/16 15:00 23:00 07:00 Intake Total 560 ml 1040 ml Balance 560 ml 1040 ml Results/Medications Result Diagram: 07/11/16 0907 07/10/16 0426 Results 24 hrs Laboratory Tests Test 07/11/16 09:07 07/11/16 09:17 Hematocrit 23.7 L Hemoglobin 7.4 L Lab Scanned Report REFERENCE LAB Medications Current Medications Calcium Carbonate (Oyster Shell Calcium) 3 gm QID GTB Last administered on 09:24; Admin Dose 3 GM; Start 07/08/16 at 09:00 Allopurinol (Zyloprim) 100 mg DAILY PO Last administered on 07/11/16 09:24; Admin Dose 100 MG; Start 07/08/16 at 09:00 Lisinopril (Zestril) 10 mg DAILY PO ; Start 07/08/16 at 09:00; Status Future Hold Metoprolol Tartrate (Lopressor) 50 mg BID PO ; Start 07/08/16 at 09:00 Amlodipine Besylate (Norvasc) 5 mg BID PO ; Start 07/08/16 at 09:00 Aspirin (Aspirin) 81 mg DAILY PO Last administered on 07/11/16 09:24; Admin Dose 81 MG; Start 07/08/16 at 09:00 Pantoprazole Sodium (Protonix) 20 mg BID@,18 PO Last administered on 17:42; Admin Dose 20 MG; Start 07/08/16 at 06:00 Trazodone HCl (Desyrel) 50 mg HS PO Last administered on 07/10/16 20:09; Admin Dose 50 MG; Start 07/08/16 at 21:00 Midodrine (Proamatine) 5 mg BID@,17 PRN PO SBP less than 100 Last administered on 07/08/16 19:05; Admin Dose 5 MG; Start 07/08/16 at 05:30 Tramadol HCl (Ultram) 50 mg Q8 PRN GTB pain; Start 07/08/16 at 05:30 Cyclobenzaprine HCl (Flexeril) 5 mg Q8 PRN PO muscle spasm; Start 07/08/16 at 05 :30 Acetaminophen/ Hydrocodone Bitart ([place] (5/325)) 1 tab Q6 PRN GTB pain Last administered on 07/09/16 09:20; Admin Dose 1 TAB; Start 07/08/16 at 05:30 Ondansetron HCl (Zofran Tab) 4 mg Q4 PRN PO NAUSEA AND/OR VOMITING Last administered on 07/11/16 09:08; Admin Dose 4 MG; Start 07/08/16 at 05:30 Morphine Sulfate (morphine) 4 mg Q4H PRN IV pain Last administered on 07/11/16 09:09; Admin Dose 4 MG; Start 07/08/16 at 05:30 Ergocalciferol 53379 unit 50,000 unit Ledbetter@09 PO ; Start 07/13/16 at 09:00 Azithromycin 250 ml @ 250 mls/hr Q24H IVPB Last administered on 07/11/16 05:49 ; Admin Dose 250 MLS/HR; Start 07/08/16 at 06:00 Ceftriaxone Sodium (Rocephin) 50 ml @ 100 mls/hr Q24H IVPB Last administered on 07/11/16 05:02; Admin Dose 100 MLS/HR; Start 07/08/16 at 06:00 Morphine Sulfate (morphine) 2 mg Q3H PRN IV SEVERE PAIN LEVEL 7-10 Last administered on 07/08/16 22:03; Admin Dose 2 MG; Start 07/08/16 at 06:00 Epoetin Gunner (Epogen (Esrd)) 10,000 units Ledbetter@17 SC ; Start 07/13/16 at 17:00 Acetaminophen (Tylenol Tab) 650 mg Q4H PRN PO PAIN AND OR ELEVATED TEMP Last administered on 07/08/16 16:32; Admin Dose 650 MG; Start 07/08/16 at 08:30 Meclizine HCl (Antivert) 25 mg Q8H PRN PO dizziness Last administered on 09:08; Admin Dose 25 MG; Start 07/08/16 at 22:00 Sodium Chloride (Nacl) 2 gm BID PO Last administered on 07/11/16 09:26; Admin Dose 2 GM; Start 07/09/16 at 12:00 Calcitriol (Rocaltrol) 0.25 mcg BID PO Last administered on 07/11/16 09:25; Admin Dose 0.25 MCG; Start 07/09/16 at 21:00 Docusate Sodium (Colace) 100 mg BID PO Last administered on 07/11/16 09:24; Admin Dose 100 MG; Start 07/09/16 at 13:00 Acyclovir (Zovirax) 800 mg BID PO Last administered on 07/11/16 09:25; Admin Dose 800 MG; Start 07/10/16 at 15:30 Magnesium Hydroxide (Milk Of Mag) 30 ml DAILY PRN PO CONSTIPATION; Start at 12:00 Assessment/Plan Chief Complaint/Hosp Course Abx: 1. Acyclovir. 2. Zithromax 3. Rocephin. ALLERGIES: None. PHYSICAL EXAMINATION: GENERAL: This is a well-nourished, well-developed, middle-aged man who is alert , sitting comfortably in bed and in no distress. HEENT: Head atraumatic, normocephalic. Sclerae anicteric. Buccal mucosa pink. Patient has lesions on upper lip nose and R side of the face that are getting dry NECK: Supple, trachea midline. CHEST: Rise symmetrical. Breath sounds diminished to bases. HEART: S1, S2. ABDOMEN: Soft, bowel tones present. EXTREMITIES: Without cyanosis. ASSESSMENT: 1. Community-acquired pneumonia. 2. Facial shingles. 3. End-stage renal disease, peritoneal dialysis dependent. 4. Anemia PLAN: The patient remains stable. Change abx to Levaquin, continue Acyclovir, start eye gtt to R eye per 's request, f/u cxr. DW staff Problems: MELLISSA SARAVIA NP Jul 11, 2016 13:25
[2016-07-11] MEDS ORDERED: LEVOFLOXACIN 250 MG TAB PO SCH (14:00)
[2016-07-11] MEDS ORDERED: LEVOFLOXACIN 750 MG TABLET PO ONE (14:00)
[2016-07-11] MEDS: CIPROFLOXACIN 0.3% 2.5 ML OPH RIGHT EYE SCH ×2 (14:20→20:50)
--- NOTE | 2016-07-11 15:29 | RADRPT ---
PROCEDURE: US Abdomen and Retroperitoneum. CLINICAL INDICATION: Abdominal pain. TECHNIQUE: Multiple real-time longitudinal and transverse images were acquired of the patient's ab domen and retroperitoneum utilizing a curved array transducer. COMPARISON: No prior studies are available for comparison. FINDINGS: The liver is normal in size and echogenicity. The liver has a normal smooth surface. There is no fo shea hepatic lesion. Color Doppler and pulsed Doppler sonography demonstrate normal antegrade flow in the portal vein. There are no gallstones in the gallbladder. There is sludge in the gallbladder and mild gallbladder wall thickening measuring 5 mm. The bile ducts are normal with the common bile duct measuring 4.9 mm in diameter. The spleen is enlarged. There is no focal splenic lesion. The pancreas is partially seen and is unremarkable. There is mild ascites. The right kidney measures 10.9 cm and the left kidney measures 7.8 cm. There is no solid renal mass. There are 2 benign right renal cysts with the largest measuring 3.1 c m. There is no renal calculus or hydronephrosis. Both kidneys are hyperechoic consistent with medical renal disease. The abdominal aorta is not dilated. The inferior vena cava is unremarkable. IMPRESSION: 1. Sludge in the gallbladder and mild gallbladder wall thickening. No gallstones. 2. Splenomegaly. No focal splenic lesion. 3. Mild ascites. 4. Benign right renal cysts. 5. Bilateral hyperechoic kidneys consistent with medical renal disease. 6. Otherwise unremarkable study. RPTAT: QQ .El Lima MD, Date Time Electronically viewed and signed by .El Lima MD, MD on 07/11/2016 15:28 .R/
--- NOTE | 2016-07-11 15:34 | CONS ---
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 The patient has since been on peritoneal dialysis. The patient also has a history of hungry bone syndrome following parathyroidectomy, a history of mineral bone disorder, history of GERD who presents to [facility] for complaints of dizziness, weakness, and fever. The patient upon arrival to the emergency room was noted to be febrile with temperatures of 102.7. The patient was noted to be hypertensive. Chest x-ray was obtained which showed a right hemidiaphragm and interval development of infiltrate involving right lower lobe concerning for possible pneumonia. The patient was started on IV antibiotics and admitted to med/surg telemetry for further evaluation. receiving 5 exchanges with a cycler at night, alternating between 1.5 and 2.5% dextrose solution with a midday exchange. The patient, however, does ultrafiltration about 1 liter daily. POC reviewed with dr. sergo CORONA: Head is normocephalic. crusted over lesions noted. NECK: Supple. HEART: Regular rate. LUNGS: Show diminished breath sounds at the base. ABDOMEN: Soft, nontender to palpation. Positive PD catheter, clean, dry, intact. EXTREMITIES: Negative for clubbing, cyanosis, no edema. DERMATOLOGIC: No rashes. MUSCULOSKELETAL: No joint effusions. NEUROLOGIC: No focal deficits. Objective Vital Signs Date Time Temp Pulse Resp B/P Pulse Ox O2 Delivery O2 Flow Rate FiO2 07/11/16 08:00 97.8 74 18 135/87 90 07/11/16 03:30 Room Air Intake and Output 07/10/16 07/10/16 07/11/16 15:00 23:00 07:00 Intake Total 560 ml 1040 ml Balance 560 ml 1040 ml Results/Medications Result Diagram: 07/11/16 0907 07/10/16 0426 Results 24 hrs Laboratory Tests Test 07/11/16 09:07 07/11/16 09:17 Hematocrit 23.7 L Hemoglobin 7.4 L Lab Scanned Report REFERENCE LAB Medications Current Medications Calcium Carbonate (Oyster Shell Calcium) 3 gm QID GTB Last administered on 09:24; Admin Dose 3 GM; Start 07/08/16 at 09:00 Allopurinol (Zyloprim) 100 mg DAILY PO Last administered on 07/11/16 09:24; Admin Dose 100 MG; Start 07/08/16 at 09:00 Lisinopril (Zestril) 10 mg DAILY PO ; Start 07/08/16 at 09:00; Status Future Hold Metoprolol Tartrate (Lopressor) 50 mg BID PO ; Start 07/08/16 at 09:00 Amlodipine Besylate (Norvasc) 5 mg BID PO ; Start 07/08/16 at 09:00 Aspirin (Aspirin) 81 mg DAILY PO Last administered on 07/11/16 09:24; Admin Dose 81 MG; Start 07/08/16 at 09:00 Pantoprazole Sodium (Protonix) 20 mg BID@,18 PO Last administered on 17:42; Admin Dose 20 MG; Start 07/08/16 at 06:00 Trazodone HCl (Desyrel) 50 mg HS PO Last administered on 07/10/16 20:09; Admin Dose 50 MG; Start 07/08/16 at 21:00 Midodrine (Proamatine) 5 mg BID@17 PRN PO SBP less than 100 Last administered on 07/08/16 19:05; Admin Dose 5 MG; Start 07/08/16 at 05:30 Tramadol HCl (Ultram) 50 mg Q8 PRN GTB pain; Start 07/08/16 at 05:30 Cyclobenzaprine HCl (Flexeril) 5 mg Q8 PRN PO muscle spasm; Start 07/08/16 at 05 :30 Acetaminophen/ Hydrocodone Bitart ([place] (5/325)) 1 tab Q6 PRN GTB pain Last administered on 07/09/16 09:20; Admin Dose 1 TAB; Start 07/08/16 at 05:30 Ondansetron HCl (Zofran Tab) 4 mg Q4 PRN PO NAUSEA AND/OR VOMITING Last administered on 07/11/16 09:08; Admin Dose 4 MG; Start 07/08/16 at 05:30 Morphine Sulfate (morphine) 4 mg Q4H PRN IV pain Last administered on 07/11/16 09:09; Admin Dose 4 MG; Start 07/08/16 at 05:30 Ergocalciferol (Drisdol) 50,000 unit Ledbetter@09 PO ; Start 07/13/16 at 09:00 Morphine Sulfate (morphine) 2 mg Q3H PRN IV SEVERE PAIN LEVEL 7-10 Last administered on 07/08/16 22:03; Admin Dose 2 MG; Start 07/08/16 at 06:00 Epoetin Gunner (Epogen (Esrd)) 10,000 units Ledbetter@17 SC ; Start 07/13/16 at 17:00 Acetaminophen (Tylenol Tab) 650 mg Q4H PRN PO PAIN AND OR ELEVATED TEMP Last administered on 07/08/16 16:32; Admin Dose 650 MG; Start 07/08/16 at 08:30 Meclizine HCl (Antivert) 25 mg Q8H PRN PO dizziness Last administered on 09:08; Admin Dose 25 MG; Start 07/08/16 at 22:00 Sodium Chloride (Nacl) 2 gm BID PO Last administered on 07/11/16 09:26; Admin Dose 2 GM; Start 07/09/16 at 12:00 Calcitriol (Rocaltrol) 0.25 mcg BID PO Last administered on 07/11/16 09:25; Admin Dose 0.25 MCG; Start 07/09/16 at 21:00 Docusate Sodium (Colace) 100 mg BID PO Last administered on 07/11/16 09:24; Admin Dose 100 MG; Start 07/09/16 at 13:00 Acyclovir (Zovirax) 800 mg BID PO Last administered on 07/11/16 09:25; Admin Dose 800 MG; Start 07/10/16 at 15:30 Magnesium Hydroxide (Milk Of Mag) 30 ml DAILY PRN PO CONSTIPATION; Start at 12:00 Ciprofloxacin HCl (Ciloxan 0.3% Oph) 1 drop TID RIGHT EYE Last administered on 07/11/16 14:20; Admin Dose 1 DROP; Start 07/11/16 at 14:00 Levofloxacin (Levaquin) 500 mg Q48H PO ; Start 07/13/16 at 06:00 Assessment/Plan Chief Complaint/Hosp Course ASSESSMENT AND PLAN: This is a 41-year-old male who presents with: 1. End-stage renal disease, currently on peritoneal dialysis. Plan is to continue current home regimen. We will do a nighttime cycler with 5 exchanges 1.5 dextrose solution in order to minimize ultrafiltration in the setting of hypotension. We will also can do an additional midday exchange. We will monitor ultrafiltration closely, minimizing no more than 1 liter daily. by labwork, doesn't appear to be getting adequate clearance but will need to fu with outpatient and evaluate rx in light of PET analysis result. 2. Mineral bone disorder with reported history of hungry bone syndrome secondary to recent parathyroidectomy in January. The patient is currently on calcium carbonate, Calcitriol and ergocalciferol. At this point, the patient's calcium levels appear to be near normal limits. We will continue to monitor. An endocrinology consult was placed. We will follow up recommendations. 3. Anemia of chronic disease. The patient is usually receiving 30 to 60,000 units of Epogen weekly. We will give the patient a dose of Epogen today 20,000 units, monitor H and H levels closely. May require transfusion if hemoglobin levels fall below 7 mg/dL. 4. Hyponatremia secondary to end-stage renal disease. Continue peritoneal dialysis. Limit free water intake. 5. Sepsis secondary to pneumonia. The patient is currently on IV antibiotics. We will continue. Follow up cultures. We will also check a peritoneal fluid for cell count, cytology and culture. 6. History of gout. Continue allopurinol. 7. Hypertension, possibly due to underlying sepsis. We will monitor closely, minimize ultrafiltration with peritoneal dialysis. 8. Hyperphosphatemia secondary to end-stage renal disease. We will continue the patient on phosphate binders. 9. History of hypertension. The patient is currently hypotensive as stated above. We will also place parameters on blood pressure medications. Problems: MANISH CUNNINGHAM MD Jul 11, 2016 15:34
[2016-07-11] MEDS: traZODone 50 MG TAB PO SCH (20:44)
--- NOTE | 2016-07-11 23:15 | PN ---
Date/Time of Note Date/Time of Note DATE: 07/11/16 TIME: 23:14 Assessment/Plan VTE Prophylaxis VTE Prophylaxis Intervention: SCD's Lines/Catheters IV [facility]ter [facility]from [facility] Urinary Cath still in place: No Assessment/Plan Assessment/Plan 1. Resolving Sepsis secondary to pneumonia, treated with Rocephin and azithromycin. 2. End-stage renal disease status post failed kidney transplant, now on peritoneal dialysis. Continue PD. 3. History of gout. Continue home allopurinol. 4. Hypertension. Continue home Norvasc. 5. Hypocalcemia: s/p parathyroidectomy: cont calcium supplement. Endocrine managing 6. Herpes Labialis: cont acyclovir. will f/u viral serology results 7. Severe Microcytic Anemia: acute on chronic: cont Epogen. Will transfuse today if pt willing 8. Thrombocytopenia: will check abd us to eval for splenomegaly (to see sequestration is the cause) Subjective 24 Hr Interval Summary Free Text/Dictation appears sleepy, but said feeling well Exam/Review of Systems Vital Signs Vitals Vital Signs Date Time Temp Pulse Resp B/P Pulse Ox O2 Delivery O2 Flow Rate FiO2 07/11/16 21:57 98.4 89 18 133/85 93 07/11/16 03:30 Room Air Intake and Output 07/10/16 07/10/16 07/11/16 15:00 23:00 07:00 Intake Total 560 ml 1040 ml Balance 560 ml 1040 ml Exam Constitutional: alert, oriented Head: atraumatic, normocephalic Eyes: EOMI, PERRL, other (RIGHT EYE REDNESS) ENMT: other (Upper lip and right side of face lesion, likely from healing herpes. also righ side of face is swollen) Respiratory: clear to auscultation, normal air movement Cardiovascular: other (TACHYCARDIC WITH REGULAR RHYTHM) Gastrointestinal: non-tender, soft Extremities: normal pulses Results Result Diagram: 07/11/1607 07/10/16 0426 Results 24 hrs Laboratory Tests Test 07/11/16 09:07 07/11/16 09:17 Hematocrit 23.7 L Hemoglobin 7.4 L Lab Scanned Report REFERENCE LAB Medications Medications Current Medications Calcium Carbonate (Oyster Shell Calcium) 3 gm QID GTB Last administered on t 20:43; Admin Dose 3 GM; Start 07/08/16 at 09:00 Allopurinol (Zyloprim) 100 mg DAILY PO Last administered on 07/11/16 09:24; Admin Dose 100 MG; Start 07/08/16 at 09:00 Lisinopril (Zestril) 10 mg DAILY PO ; Start 07/08/16 at 09:00; Status Future Hold Metoprolol Tartrate (Lopressor) 50 mg BID PO ; Start 07/08/16 at 09:00 Amlodipine Besylate (Norvasc) 5 mg BID PO ; Start 07/08/16 at 09:00 Aspirin (Aspirin) 81 mg DAILY PO Last administered on 07/11/16 09:24; Admin Dose 81 MG; Start 07/08/16 at 09:00 Pantoprazole Sodium (Protonix) 20 mg BID@18 PO Last administered on 17:55; Admin Dose 20 MG; Start 07/08/16 at 06:00 Trazodone HCl (Desyrel) 50 mg HS PO Last administered on 07/11/16 20:44; Admin Dose 50 MG; Start 07/08/16 at 21:00 Midodrine (Proamatine) 5 mg BID@17 PRN PO SBP less than 100 Last administered on 07/08/16 19:05; Admin Dose 5 MG; Start 07/08/16 at 05:30 Tramadol HCl (Ultram) 50 mg Q8 PRN GTB pain; Start 07/08/16 at 05:30 Cyclobenzaprine HCl (Flexeril) 5 mg Q8 PRN PO muscle spasm; Start 07/08/16 at 05 :30 Acetaminophen/ Hydrocodone Bitart ([place] (5/325)) 1 tab Q6 PRN GTB pain Last administered on 07/09/16 09:20; Admin Dose 1 TAB; Start 07/08/16 at 05:30 Ondansetron HCl (Zofran Tab) 4 mg Q4 PRN PO NAUSEA AND/OR VOMITING Last administered on 07/11/16 09:08; Admin Dose 4 MG; Start 07/08/16 at 05:30 Morphine Sulfate (morphine) 4 mg Q4H PRN IV pain Last administered on 07/11/16 09:09; Admin Dose 4 MG; Start 07/08/16 at 05:30 Ergocalciferol (Drisdol) 50,000 unit Ledbetter@09 PO ; Start 07/13/16 at 09:00 Morphine Sulfate (morphine) 2 mg Q3H PRN IV SEVERE PAIN LEVEL 7-10 Last administered on 07/08/16 22:03; Admin Dose 2 MG; Start 07/08/16 at 06:00 Epoetin Gunner (Epogen (Esrd)) 10,000 units Ledbetter@17 SC ; Start 07/13/16 at 17:00 Acetaminophen (Tylenol Tab) 650 mg Q4H PRN PO PAIN AND OR ELEVATED TEMP Last administered on 07/08/16 16:32; Admin Dose 650 MG; Start 07/08/16 at 08:30 Meclizine HCl (Antivert) 25 mg Q8H PRN PO dizziness Last administered on 09:08; Admin Dose 25 MG; Start 07/08/16 at 22:00 Sodium Chloride (Nacl) 2 gm BID PO Last administered on 07/11/16 20:46; Admin Dose 2 GM; Start 07/09/16 at 12:00 Calcitriol (Rocaltrol) 0.25 mcg BID PO Last administered on 07/11/16 20:46; Admin Dose 0.25 MCG; Start 07/09/16 at 21:00 Docusate Sodium (Colace) 100 mg BID PO Last administered on 07/11/16 20:45; Admin Dose 100 MG; Start 07/09/16 at 13:00 Acyclovir (Zovirax) 800 mg BID PO Last administered on 07/11/16 20:45; Admin Dose 800 MG; Start 07/10/16 at 15:30 Magnesium Hydroxide (Milk Of Mag) 30 ml DAILY PRN PO CONSTIPATION Last administered on 07/11/16 20:49; Admin Dose 30 ML; Start 07/11/16 at 12:00 Ciprofloxacin HCl (Ciloxan 0.3% Oph) 1 drop TID RIGHT EYE Last administered on 07/11/16 20:50; Admin Dose 1 DROP; Start 07/11/16 at 14:00 Levofloxacin (Levaquin) 500 mg Q48H PO ; Start 07/13/16 at 06:00 STEPHANIE WELLS MD Jul 11, 2016 23:15
[2016-07-11 23:19] LABS: VARICELLA-ZOSTER VIRUS AB IgM 0.78
[2016-07-12] MEDS: PANTOPRAZOLE SODIUM 20 MG TABEC PO SCH (06:03)
[2016-07-12 06:05] LABS: ALBUMIN 3.3 g/dl (3.3-4.9)
[2016-07-12 06:06] LABS: POTASSIUM 3.4 mmol/L (3.5-5.1)
[2016-07-12 06:08] LABS: ALBUMIN/GLOBULIN RATIO 0.82; CALCIUM 8.1 mg/dl (8.4-10.2); TOTAL PROTEIN 7.3 g/dl (6.1-8.1)
[2016-07-12 06:10] LABS: HEMATOCRIT 22.9 % (42.0-52.0); HEMOGLOBIN 7.2 g/dl (14.0-18.0); MEAN CORPUSCULAR HGB CONC 31.6 g/dl (32.0-37.0); MEAN CORPUSCULAR VOLUME 60.2 fl (82.0-101.0); RED CELL DISTRIBUTION WIDTH 31.9 % (11.5-14.5); UNCORRECTED WBC 6.6 10^3/ul (4.8-10.8); WHITE BLOOD COUNT 6.6 10^3/ul (4.8-10.8)
[2016-07-12 06:26] LABS: CREATININE 15.63 mg/dl (0.61-1.24)
[2016-07-12 06:28] LABS: CONDITION 1; LH ANALYZER COMMENTS 1; MEAN PLATELET VOLUME 8.3 fl (7.4-10.4); PLATELET COUNT 101 10^3/UL (140-440); SUSPECT 1
--- NOTE | 2016-07-12 07:52 | CONS ---
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 The patient has since been on peritoneal dialysis. The patient also has a history of hungry bone syndrome following parathyroidectomy, a history of mineral bone disorder, history of GERD who presents to [facility] for complaints of dizziness, weakness, and fever. The patient upon arrival to the emergency room was noted to be febrile with temperatures of 102.7. The patient was noted to be hypertensive. Chest x-ray was obtained which showed a right hemidiaphragm and interval development of infiltrate involving right lower lobe concerning for possible pneumonia. The patient was started on IV antibiotics and admitted to med/surg telemetry for further evaluation. receiving 5 exchanges with a cycler at night, alternating between 1.5 and 2.5% dextrose solution with a midday exchange. The patient, however, does ultrafiltration about 1 liter daily. POC reviewed with dr. sergo CORONA: Head is normocephalic. crusted over lesions noted. NECK: Supple. HEART: Regular rate. LUNGS: Show diminished breath sounds at the base. ABDOMEN: Soft, nontender to palpation. Positive PD catheter, clean, dry, intact. EXTREMITIES: Negative for clubbing, cyanosis, no edema. DERMATOLOGIC: No rashes. MUSCULOSKELETAL: No joint effusions. NEUROLOGIC: No focal deficits. Objective Vital Signs Date Time Temp Pulse Resp B/P Pulse Ox O2 Delivery O2 Flow Rate FiO2 07/11/16 21:57 98.4 89 18 133/85 93 07/11/16 03:30 Room Air Intake and Output 07/11/16 07/11/16 07/12/16 15:00 23:00 07:00 Intake Total 480 ml 750 ml Balance 480 ml 750 ml Results/Medications Result Diagram: 07/12/16 0425 07/12/16 0425 Results 24 hrs Laboratory Tests Test 07/11/16 09:07 07/11/16 09:17 07/12/16 04:25 Hematocrit 23.7 L 22.9 L Hemoglobin 7.4 L 7.2 L Lab Scanned Report REFERENCE LAB Alanine Aminotransferase (ALT/SGPT) 27 Albumin 3.3 Albumin/Globulin Ratio 0.82 Alkaline Phosphatase 75 Anion Gap 19 H Aspartate Amino Transf (AST/SGOT) 26 Blood Morphology Comment Blood Urea Nitrogen 62 H Calcium Level 8.1 L Carbon Dioxide Level 26 Chloride Level 95 L Creatinine 15.63 #H Direct Bilirubin 0.00 Globulin 4.00 H Glucose Level 114 Indirect Bilirubin 0.0 Mean Corpuscular Hemoglobin 19.0 L Mean Corpuscular Hemoglobin Concent 31.6 L Mean Corpuscular Volume 60.2 L Mean Platelet Volume 8.3 Phosphorus Level 5.1 H Platelet Count 101 #L Potassium Level 3.4 L Red Blood Count 3.80 L Red Cell Distribution Width 31.9 #H Sodium Level 137 Total Bilirubin 0.0 L Total Protein 7.3 White Blood Count 6.6 Medications Current Medications Calcium Carbonate (Oyster Shell Calcium) 3 gm QID GTB Last administered on 20:43; Admin Dose 3 GM; Start 07/08/16 at 09:00 Allopurinol (Zyloprim) 100 mg DAILY PO Last administered on 07/11/16 09:24; Admin Dose 100 MG; Start 07/08/16 at 09:00 Lisinopril (Zestril) 10 mg DAILY PO ; Start 07/08/16 at 09:00; Status Future Hold Metoprolol Tartrate (Lopressor) 50 mg BID PO ; Start 07/08/16 at 09:00 Amlodipine Besylate (Norvasc) 5 mg BID PO ; Start 07/08/16 at 09:00 Aspirin (Aspirin) 81 mg DAILY PO Last administered on 07/11/16 09:24; Admin Dose 81 MG; Start 07/08/16 at 09:00 Pantoprazole Sodium (Protonix) 20 mg BID@06,18 PO Last administered on 06:03; Admin Dose 20 MG; Start 07/08/16 at 06:00 Trazodone HCl (Desyrel) 50 mg HS PO Last administered on 07/11/16 20:44; Admin Dose 50 MG; Start 07/08/16 at 21:00 Midodrine (Proamatine) 5 mg BID@,17 PRN PO SBP less than 100 Last administered on 07/08/16 19:05; Admin Dose 5 MG; Start 07/08/16 at 05:30 Tramadol HCl (Ultram) 50 mg Q8 PRN GTB pain; Start 07/08/16 at 05:30 Cyclobenzaprine HCl (Flexeril) 5 mg Q8 PRN PO muscle spasm; Start 07/08/16 at 05 :30 Acetaminophen/ Hydrocodone Bitart ([place] (5/325)) 1 tab Q6 PRN GTB pain Last administered on 07/09/16 09:20; Admin Dose 1 TAB; Start 07/08/16 at 05:30 Ondansetron HCl (Zofran Tab) 4 mg Q4 PRN PO NAUSEA AND/OR VOMITING Last administered on 07/11/16 09:08; Admin Dose 4 MG; Start 07/08/16 at 05:30 Morphine Sulfate (morphine) 4 mg Q4H PRN IV pain Last administered on 07/11/16 09:09; Admin Dose 4 MG; Start 07/08/16 at 05:30 Ergocalciferol (Drisdol) 50,000 unit Ledbetter@09 PO ; Start 07/13/16 at 09:00 Morphine Sulfate (morphine) 2 mg Q3H PRN IV SEVERE PAIN LEVEL 7-10 Last administered on 07/08/16 22:03; Admin Dose 2 MG; Start 07/08/16 at 06:00 Epoetin Gunner (Epogen (Esrd)) 10,000 units Ledbetter@17 SC ; Start 07/13/16 at 17:00 Acetaminophen (Tylenol Tab) 650 mg Q4H PRN PO PAIN AND OR ELEVATED TEMP Last administered on 07/08/16 16:32; Admin Dose 650 MG; Start 07/08/16 at 08:30 Meclizine HCl (Antivert) 25 mg Q8H PRN PO dizziness Last administered on 09:08; Admin Dose 25 MG; Start 07/08/16 at 22:00 Sodium Chloride (Nacl) 2 gm BID PO Last administered on 07/11/16 20:46; Admin Dose 2 GM; Start 07/09/16 at 12:00 Calcitriol (Rocaltrol) 0.25 mcg BID PO Last administered on 07/11/16 20:46; Admin Dose 0.25 MCG; Start 07/09/16 at 21:00 Docusate Sodium (Colace) 100 mg BID PO Last administered on 07/11/16 20:45; Admin Dose 100 MG; Start 07/09/16 at 13:00 Acyclovir (Zovirax) 800 mg BID PO Last administered on 07/11/16 20:45; Admin Dose 800 MG; Start 07/10/16 at 15:30 Magnesium Hydroxide (Milk Of Mag) 30 ml DAILY PRN PO CONSTIPATION Last administered on 07/11/16 20:49; Admin Dose 30 ML; Start 07/11/16 at 12:00 Ciprofloxacin HCl (Ciloxan 0.3% Oph) 1 drop TID RIGHT EYE Last administered on 07/11/16 20:50; Admin Dose 1 DROP; Start 07/11/16 at 14:00 Levofloxacin (Levaquin) 500 mg Q48H PO ; Start 07/13/16 at 06:00 Assessment/Plan Chief Complaint/Hosp Course ASSESSMENT AND PLAN: This is a 41-year-old male who presents with: 1. End-stage renal disease, currently on peritoneal dialysis. Plan is to continue current home regimen. We will do a nighttime cycler with 5 exchanges 1.5 dextrose solution in order to minimize ultrafiltration in the setting of hypotension. We will also can do an additional midday exchange. We will monitor ultrafiltration closely, minimizing no more than 1 liter daily. by labwork, doesn't appear to be getting adequate clearance but will need to fu with outpatient and evaluate rx in light of PET analysis result. 2. Mineral bone disorder with reported history of hungry bone syndrome secondary to recent parathyroidectomy in January. The patient is currently on calcium carbonate, Calcitriol and ergocalciferol. At this point, the patient's calcium levels appear to be near normal limits. We will continue to monitor. An endocrinology consult was placed. We will follow up recommendations. 3. Anemia of chronic disease. The patient is usually receiving 30 to 60,000 units of Epogen weekly. We will give the patient a dose of Epogen today 20,000 units, monitor H and H levels closely. May require transfusion if hemoglobin levels fall below 7 mg/dL. 4. Hyponatremia secondary to end-stage renal disease. Continue peritoneal dialysis. Limit free water intake. 5. Sepsis secondary to pneumonia. The patient is currently on IV antibiotics. We will continue. Follow up cultures. We will also check a peritoneal fluid for cell count, cytology and culture. 6. History of gout. Continue allopurinol. 7. Hypertension, possibly due to underlying sepsis. We will monitor closely, minimize ultrafiltration with peritoneal dialysis. 8. Hyperphosphatemia secondary to end-stage renal disease. We will continue the patient on phosphate binders. 9. History of hypertension. The patient is currently hypotensive as stated above. We will also place parameters on blood pressure medications. Problems: MANISH CUNNINGHAM MD Jul 12, 2016 07:52
[2016-07-12 08:01] VITALS: BP 131/86; RESP 20
[2016-07-12] MEDS: METOPROLOL 50 MG TAB PO SCH (09:00)
[2016-07-12] MEDS: AMLODIPINE 5 MG TAB PO SCH (09:00)
[2016-07-12] MEDS: CALCIUM CARBONATE 1.25 GM TAB GTB SCH ×2 (09:03→12:58)
[2016-07-12] MEDS: DOCUSATE SODIUM 100 MG CAP PO SCH (09:04)
[2016-07-12] MEDS: ACYCLOVIR 800 MG TAB PO SCH (09:04)
[2016-07-12] MEDS: SODIUM CHLORIDE 1 GM TAB PO SCH (09:04)
[2016-07-12] MEDS: SEVELAMER 800 MG TAB PO SCH ×2 (09:04→13:00)
[2016-07-12] MEDS: CALCIUM ACETATE 667 MG CAP PO SCH ×2 (09:04→12:59)
[2016-07-12] MEDS: ASPIRIN 81 MG TAB PO SCH (09:04)
[2016-07-12] MEDS: CALCITRIOL 0.25 MCG CAP PO SCH (09:04)
[2016-07-12] MEDS: ALLOPURINOL 100 MG TAB PO SCH (09:05)
[2016-07-12] MEDS ORDERED: EPOETIN 10000 UNITS/1 ML INJ (ESRD) SC ONE ×2 (09:30)
[2016-07-12] MEDS: CIPROFLOXACIN 0.3% 2.5 ML OPH RIGHT EYE SCH (10:17)
[2016-07-12 10:33] LABS: EOSINOPHILS # 0.1 10^3/ul (0.0-0.5); LYMPHOCYTES # 1.6 10^3/ul (0.8-2.9); MONOCYTE # 0.4 10^3/ul (0.3-0.9); NEUTROPHIL # 4.5 10^3/ul (1.6-7.5)
[2016-07-12] MEDS ORDERED: POTASSIUM CHLORIDE (SR) 20 MEQ TAB PO STA (11:35)
--- NOTE | 2016-07-12 11:43 | CONS ---
Date/Time of Note Date/Time of Note DATE: 07/12/16 TIME: 11:39 Assessment/Plan Assessment/Plan Problems: (1) Hypocalcemia syndrome Status: Chronic Comment: Pt. stable on calcitriol 0.25 mcg bid, ergocalciferol 50K weekly, and calcium carbonate 3 g qid. Corrected calcium is 8.66 in the lower end of the normal range which is goal for this patient. Await PTH level. Consultation Date/Type/Reason Admit Date/Time Jul 08, 2016 at 00:22 Initial Consult Date 07/08/16 Type of Consultation: Endocrinology Reason for Consultation Hypocalcemia Referring Provider: MERCEDES GARCIA 24 HR Interval Summary Constitutional: improved, no complaints Detailed Summary Respiratory: no complaints Cardiovascular: no complaints Gastrointestinal: no complaints Genitourinary: no complaints Musculoskeletal: no complaints Skin: rash (on R face) Neurologic: no complaints, No other (no parasthesias or spasms) Exam/Review of Systems Vital Signs Vitals VS - Last 72 Hours, by Label Date Time Temp Pulse Resp B/P Pulse Ox O2 Delivery O2 Flow Rate FiO2 07/12/16 08:01 98.0 92 20 131/86 97 07/11/16 21:57 98.4 89 18 133/85 93 07/11/16 18:00 98 07/11/16 08:00 97.8 74 18 135/87 90 07/11/16 03:30 98.4 78 17 125/75 Room Air 07/11/16 02:30 98.7 80 17 128/83 Room Air 07/11/16 01:30 98.7 79 18 127/85 Room Air 07/11/16 00:30 98.5 77 18 126/80 Room Air 07/10/16 23:30 98.4 87 17 119/79 Room Air 07/10/16 23:15 98.5 88 17 121/77 Room Air 07/10/16 22:50 98.2 92 17 109/78 Room Air 07/10/16 19:22 98.3 75 18 138/67 97 07/10/16 19:15 97.6 89 18 106/74 99 07/10/16 08:15 98.4 97 20 101/74 94 07/09/16 20:15 98.4 95 20 126/71 99 Vital Signs Date Time Temp Pulse Resp B/P Pulse Ox O2 Delivery O2 Flow Rate FiO2 1/7/17 08:01 98.0 92 20 131/86 97 07/11/16 03:30 Room Air Intake and Output 07/11/16 07/11/16 07/12/16 15:00 23:00 07:00 Intake Total 480 ml 750 ml Output Total 2034 ml Balance 480 ml -1284 ml Exam Constitutional: alert, oriented, well developed Psych: nl mood/affect, no complaints Respiratory: clear to auscultation, normal air movement Cardiovascular: nl pulses, regular rate and rhythm, No edema, No murmurs/extra sounds, No rub Gastrointestinal: bowel sounds, nl liver, spleen, non-tender, soft, No mass, No rebound or guarding Musculoskeletal: nl extremities to inspection Extremities: normal pulses, No clubbing, No cyanosis, No edema Neurological: [employer] SPECIALIST II-XII intact, nl mental status, nl speech, nl strength Results Result Diagram: 07/12/16 0425 07/12/16 0425 Results 24 hrs Laboratory Tests Test 07/12/16 04:25 Alanine Aminotransferase (ALT/SGPT) 27 Albumin 3.3 Albumin/Globulin Ratio 0.82 Alkaline Phosphatase 75 Anion Gap 19 H Aspartate Amino Transf (AST/SGOT) 26 Blood Morphology Comment Blood Urea Nitrogen 62 H Calcium Level 8.1 L Carbon Dioxide Level 26 Chloride Level 95 L Creatinine 15.63 #H Direct Bilirubin 0.00 Eosinophils # 0.1 Eosinophils % 2.0 Globulin 4.00 H Glucose Level 114 Hematocrit 22.9 L Hemoglobin 7.2 L Indirect Bilirubin 0.0 Lymphocytes # 1.6 Lymphocytes % 24.0 Mean Corpuscular Hemoglobin 19.0 L Mean Corpuscular Hemoglobin Concent 31.6 L Mean Corpuscular Volume 60.2 L Mean Platelet Volume 8.3 Monocytes # 0.4 Monocytes % 6.0 Neutrophils # 4.5 Neutrophils % 68.0 Phosphorus Level 5.1 H Platelet Count 101 #L Potassium Level 3.4 L Red Blood Count 3.80 L Red Cell Distribution Width 31.9 #H Sodium Level 137 Total Bilirubin 0.0 L Total Protein 7.3 White Blood Count 6.6 Medications Medications Current Medications Calcium Carbonate (Oyster Shell Calcium) 3 gm QID GTB Last administered on t 09:03; Admin Dose 3 GM; Start 07/08/16 at 09:00 Allopurinol (Zyloprim) 100 mg DAILY PO Last administered on 07/12/16 09:05; Admin Dose 100 MG; Start 07/08/16 at 09:00 Lisinopril (Zestril) 10 mg DAILY PO ; Start 07/08/16 at 09:00; Status Future Hold Metoprolol Tartrate (Lopressor) 50 mg BID PO ; Start 07/08/16 at 09:00 Amlodipine Besylate (Norvasc) 5 mg BID PO ; Start 07/08/16 at 09:00 Aspirin (Aspirin) 81 mg DAILY PO Last administered on 07/12/16 09:04; Admin Dose 81 MG; Start 07/08/16 at 09:00 Pantoprazole Sodium (Protonix) 20 mg BID@18 PO Last administered on 06:03; Admin Dose 20 MG; Start 07/08/16 at 06:00 Trazodone HCl (Desyrel) 50 mg HS PO Last administered on 07/11/16 20:44; Admin Dose 50 MG; Start 07/08/16 at 21:00 Midodrine (Proamatine) 5 mg BID@17 PRN PO SBP less than 100 Last administered on 07/08/16 19:05; Admin Dose 5 MG; Start 07/08/16 at 05:30 Tramadol HCl (Ultram) 50 mg Q8 PRN GTB pain; Start 07/08/16 at 05:30 Cyclobenzaprine HCl (Flexeril) 5 mg Q8 PRN PO muscle spasm; Start 07/08/16 at 05 :30 Acetaminophen/ Hydrocodone Bitart ([place] (5/325)) 1 tab Q6 PRN GTB pain Last administered on 07/09/16 09:20; Admin Dose 1 TAB; Start 07/08/16 at 05:30 Ondansetron HCl (Zofran Tab) 4 mg Q4 PRN PO NAUSEA AND/OR VOMITING Last administered on 07/11/16 09:08; Admin Dose 4 MG; Start 07/08/16 at 05:30 Morphine Sulfate (morphine) 4 mg Q4H PRN IV pain Last administered on 07/11/16 09:09; Admin Dose 4 MG; Start 07/08/16 at 05:30 Ergocalciferol (Drisdol) 50,000 unit Ledbetter@09 PO ; Start 07/13/16 at 09:00 Morphine Sulfate (morphine) 2 mg Q3H PRN IV SEVERE PAIN LEVEL 7-10 Last administered on 07/08/16 22:03; Admin Dose 2 MG; Start 07/08/16 at 06:00 Epoetin Gunner (Epogen (Esrd)) 10,000 units Ledbetter@17 SC ; Start 07/13/16 at 17:00 Acetaminophen (Tylenol Tab) 650 mg Q4H PRN PO PAIN AND OR ELEVATED TEMP Last administered on 07/08/16 16:32; Admin Dose 650 MG; Start 07/08/16 at 08:30 Meclizine HCl (Antivert) 25 mg Q8H PRN PO dizziness Last administered on 09:08; Admin Dose 25 MG; Start 07/08/16 at 22:00 Sodium Chloride (Nacl) 2 gm BID PO Last administered on 07/12/16 09:04; Admin Dose 2 GM; Start 07/09/16 at 12:00 Calcitriol (Rocaltrol) 0.25 mcg BID PO Last administered on 07/12/16 09:04; Admin Dose 0.25 MCG; Start 07/09/16 at 21:00 Docusate Sodium (Colace) 100 mg BID PO Last administered on 07/12/16 09:04; Admin Dose 100 MG; Start 07/09/16 at 13:00 Acyclovir (Zovirax) 800 mg BID PO Last administered on 07/12/16 09:04; Admin Dose 800 MG; Start 07/10/16 at 15:30 Magnesium Hydroxide (Milk Of Mag) 30 ml DAILY PRN PO CONSTIPATION Last administered on 07/11/16 20:49; Admin Dose 30 ML; Start 07/11/16 at 12:00 Ciprofloxacin HCl (Ciloxan 0.3% Oph) 1 drop TID RIGHT EYE Last administered on 07/12/16 10:17; Admin Dose 1 DROP; Start 07/11/16 at 14:00 Levofloxacin (Levaquin) 500 mg Q48H PO ; Start 07/13/16 at 06:00 BRENDON HERNÁNDEZ MD Jul 12, 2016 11:43
[2016-07-12] MEDS ORDERED: CIPR2.5D11 RIGHT EYE (13:36)
[2016-07-12] MEDS ORDERED: ALLO100T PO (13:36)
[2016-07-12] MEDS ORDERED: HYDR-842 PO (13:36)
[2016-07-12] MEDS ORDERED: ACYC800T PO (13:36)
--- NOTE | 2016-07-12 13:37 | PDOCDIS ---
Discharge Instructions CONDITION Patient Condition: Stable HOME CARE INSTRUCTIONS: Special Diet: Renal ACTIVITY: Activity Restrictions: Slowly Increase Activity FOLLOW UP/APPOINTMENTS Appointments Follow-up at [facility] as scheduled on 07/14/16 STEPHANIE WELLS MD Jul 12, 2016 13:37
--- NOTE | 2016-07-12 13:52 | CONS ---
Date/Time of Note Date/Time of Note DATE: 07/12/16 TIME: 13:50 Consult Date/Type/Reason Admit Date/Time Jul 08, 2016 at 00:22 Initial Consult Date 07/08/16 Type of Consultation: id Ordering Provider: MERCEDES GARCIA Subjective alert, feels good, no fevers, nad Objective Vital Signs Date Time Temp Pulse Resp B/P Pulse Ox O2 Delivery O2 Flow Rate FiO2 07/12/16 08:01 98.0 92 20 131/86 97 07/11/16 03:30 Room Air Intake and Output 07/11/16 07/11/16 07/12/16 14:59 22:59 06:59 Intake Total 480 ml 750 ml Output Total 2034 ml Balance 480 ml -1284 ml Results/Medications Result Diagram: 07/12/16 0425 07/12/16 0425 Results 24 hrs Laboratory Tests Test 07/12/16 04:25 Alanine Aminotransferase (ALT/SGPT) 27 Albumin 3.3 Albumin/Globulin Ratio 0.82 Alkaline Phosphatase 75 Anion Gap 19 H Aspartate Amino Transf (AST/SGOT) 26 Blood Morphology Comment Blood Urea Nitrogen 62 H Calcium Level 8.1 L Carbon Dioxide Level 26 Chloride Level 95 L Creatinine 15.63 #H Direct Bilirubin 0.00 Eosinophils # 0.1 Eosinophils % 2.0 Globulin 4.00 H Glucose Level 114 Hematocrit 22.9 L Hemoglobin 7.2 L Indirect Bilirubin 0.0 Lymphocytes # 1.6 Lymphocytes % 24.0 Mean Corpuscular Hemoglobin 19.0 L Mean Corpuscular Hemoglobin Concent 31.6 L Mean Corpuscular Volume 60.2 L Mean Platelet Volume 8.3 Monocytes # 0.4 Monocytes % 6.0 Neutrophils # 4.5 Neutrophils % 68.0 Phosphorus Level 5.1 H Platelet Count 101 #L Potassium Level 3.4 L Red Blood Count 3.80 L Red Cell Distribution Width 31.9 #H Sodium Level 137 Total Bilirubin 0.0 L Total Protein 7.3 White Blood Count 6.6 Medications Current Medications Calcium Carbonate (Oyster Shell Calcium) 3 gm QID GTB Last administered on 12:58; Admin Dose 3 GM; Start 07/08/16 at 09:00 Allopurinol (Zyloprim) 100 mg DAILY PO Last administered on 07/12/16 09:05; Admin Dose 100 MG; Start 07/08/16 at 09:00 Lisinopril (Zestril) 10 mg DAILY PO ; Start 07/08/16 at 09:00; Status Future Hold Metoprolol Tartrate (Lopressor) 50 mg BID PO ; Start 07/08/16 at 09:00 Amlodipine Besylate (Norvasc) 5 mg BID PO ; Start 07/08/16 at 09:00 Aspirin (Aspirin) 81 mg DAILY PO Last administered on 07/12/16 09:04; Admin Dose 81 MG; Start 07/08/16 at 09:00 Pantoprazole Sodium (Protonix) 20 mg BID@18 PO Last administered on 06:03; Admin Dose 20 MG; Start 07/08/16 at 06:00 Trazodone HCl (Desyrel) 50 mg HS PO Last administered on 07/11/16 20:44; Admin Dose 50 MG; Start 07/08/16 at 21:00 Midodrine (Proamatine) 5 mg BID@ PRN PO SBP less than 100 Last administered on 07/08/16 19:05; Admin Dose 5 MG; Start 07/08/16 at 05:30 Tramadol HCl (Ultram) 50 mg Q8 PRN GTB pain; Start 07/08/16 at 05:30 Cyclobenzaprine HCl (Flexeril) 5 mg Q8 PRN PO muscle spasm; Start 07/08/16 at 05 :30 Acetaminophen/ Hydrocodone Bitart ([place] (5/325)) 1 tab Q6 PRN GTB pain Last administered on 07/09/16 09:20; Admin Dose 1 TAB; Start 07/08/16 at 05:30 Ondansetron HCl (Zofran Tab) 4 mg Q4 PRN PO NAUSEA AND/OR VOMITING Last administered on 07/11/16 09:08; Admin Dose 4 MG; Start 07/08/16 at 05:30 Morphine Sulfate (morphine) 4 mg Q4H PRN IV pain Last administered on 07/11/16 09:09; Admin Dose 4 MG; Start 07/08/16 at 05:30 Ergocalciferol (Drisdol) 50,000 unit Ledbetter@09 PO ; Start 07/13/16 at 09:00 Morphine Sulfate (morphine) 2 mg Q3H PRN IV SEVERE PAIN LEVEL 7-10 Last administered on 07/08/16 22:03; Admin Dose 2 MG; Start 07/08/16 at 06:00 Epoetin Gunner (Epogen (Esrd)) 10,000 units Ledbetter@17 SC ; Start 07/13/16 at 17:00 Acetaminophen (Tylenol Tab) 650 mg Q4H PRN PO PAIN AND OR ELEVATED TEMP Last administered on 07/08/16 16:32; Admin Dose 650 MG; Start 07/08/16 at 08:30 Meclizine HCl (Antivert) 25 mg Q8H PRN PO dizziness Last administered on 09:08; Admin Dose 25 MG; Start 07/08/16 at 22:00 Sodium Chloride (Nacl) 2 gm BID PO Last administered on 07/12/16 09:04; Admin Dose 2 GM; Start 07/09/16 at 12:00 Calcitriol (Rocaltrol) 0.25 mcg BID PO Last administered on 07/12/16 09:04; Admin Dose 0.25 MCG; Start 07/09/16 at 21:00 Docusate Sodium (Colace) 100 mg BID PO Last administered on 07/12/16 09:04; Admin Dose 100 MG; Start 07/09/16 at 13:00 Acyclovir (Zovirax) 800 mg BID PO Last administered on 07/12/16 09:04; Admin Dose 800 MG; Start 07/10/16 at 15:30 Magnesium Hydroxide (Milk Of Mag) 30 ml DAILY PRN PO CONSTIPATION Last administered on 07/11/16 20:49; Admin Dose 30 ML; Start 07/11/16 at 12:00 Ciprofloxacin HCl (Ciloxan 0.3% Oph) 1 drop TID RIGHT EYE Last administered on 07/12/16 10:17; Admin Dose 1 DROP; Start 07/11/16 at 14:00 Levofloxacin (Levaquin) 500 mg Q48H PO ; Start 07/13/16 at 06:00 Assessment/Plan Chief Complaint/Hosp Course Abx: 1. Acyclovir. 2. Levaquin ALLERGIES: None. PHYSICAL EXAMINATION: GENERAL: This is a well-nourished, well-developed, middle-aged man who is alert , sitting comfortably in bed and in no distress. HEENT: Head atraumatic, normocephalic. Sclerae anicteric. Buccal mucosa pink. Patient has lesions on upper lip nose and R side of the face that are getting dry NECK: Supple, trachea midline. CHEST: Rise symmetrical. Breath sounds diminished to bases. HEART: S1, S2. ABDOMEN: Soft, bowel tones present. EXTREMITIES: Without cyanosis. ASSESSMENT: 1. Community-acquired pneumonia. 2. Facial shingles==> resolving. 3. End-stage renal disease, peritoneal dialysis dependent. 4. Anemia PLAN: The patient remains stable. Overall improved, pending dc planning, continue abx, f/u with PMD DW staff//pt at bedside Problems: MELLISSA SARAVIA NP Jul 12, 2016 13:52
[2016-07-12 13:54] VITALS: BP 130/82; PULSE 90
[2016-07-12 15:28] LABS: HERPES SIMPLEX 1 DNA NOT DETECTED; HERPES SIMPLEX 2 DNA NOT DETECTED; HERPES SIMPLEX PCR SOURCE S/P
[2016-07-13] MEDS ORDERED: LEVOFLOXACIN 500 MG TAB PO SCH (06:00)
[2016-07-13] MEDS ORDERED: ERGOCALCIFEROL 50,000 UNIT CAP PO SCH (09:00)
[2016-07-13 10:51] LABS: VARICELLA-ZOSTER VIRUS AB IgG >5.00 (<= 0.90)
[2016-07-13] MEDS ORDERED: EPOETIN 10000 UNITS/1 ML INJ (ESRD) SC SCH (17:00)
== END 2016-07-12 14:25 | disposition home or self-care (01) | DRG 871 ==
LOC: E/R 21:50 → PP2 07-08 00:22 → MS2 07-08 21:08 → MS1 07-08 23:52
PROVIDERS: ADMIT Internal Medicine; ATTEND Internal Medicine
PROC: 3E1M39Z Irrigation of Peritoneal Cavity using Dialysate, Percutaneous Approach (ICD-10-PCS; principal; 2016-07-10)
PROC: 30233N1 Transfusion of Nonautologous Red Blood Cells into Peripheral Vein, Percutaneous Approach (ICD-10-PCS; 2016-07-10)
DX: A41.89 Other specified sepsis (principal); J18.9 Pneumonia, unspecified organism; T86.12 Kidney transplant failure; N18.6 End stage renal disease; I12.0 Hypertensive chronic kidney disease with stage 5 chronic kidney disease or end stage renal disease; D69.59 Other secondary thrombocytopenia; E87.1 Hypo-osmolality and hyponatremia; Z99.2 Dependence on renal dialysis; E83.81 Hungry bone syndrome; E83.51 Hypocalcemia; E83.39 Other disorders of phosphorus metabolism; D63.1 Anemia in chronic kidney disease; K21.9 Gastro-esophageal reflux disease without esophagitis; M10.9 Gout, unspecified
CPT/HCPCS: 36430; 70450; 71010; 76700; 80048; 80053; 82330; 82728; 83540; 83605; 83735; 83970; 84100; 84436; 84439; 84443; 84479; 84484; 85014; 85018; 85025; 85610; 85730; 86694; 86850; 86900; 86901; 86920; 87040; 87070; 87081; 87102; 87116; 87255; 87529; 88104; 88313; 89050; 90945; 93005; 96365; 96375; J0456; J0696; J0886; J2270; J2405; J2543; J3370; J7040; P9016